=== PATIENT | female | born 2005 | race Caucasian/White ===

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

== ENCOUNTER → 2024-01-09 07:31 | Outpatient (CLI) | payer OTHER, SELFPAY | PROVIDERS: PCP Family Medicine; Referring Provider Family Medicine; Visit Provider Family Medicine | DX: E03.8 Other specified hypothyroidism (principal); E06.3 Autoimmune thyroiditis | CPT/HCPCS: 36415; 84443 ==

== ENCOUNTER → 2024-05-09 08:56 | Outpatient (CLI) | payer BC, SELFPAY ==
--- NOTE | 2024-05-17 12:34 | DIAB.MNT ---
Initial Diabetes Medical Nutrition Therapy Assessment Name: Jessica Terrazas Date: 05/09/24 Time: 9-10a Dx: Type II Diabetes Provider: Andrea Antoni presents for initial DM visit. Reports newly diagnosed with DM with a 10.5% hgA1c. Just one year ago had hgA1c 5.2%. Patient also has PMH of hypothyroidism. After further discussion about rapid onset of symptoms, eye sight changes, frequent urination and thrist over one month, weight loss of 20# over weeks reported in Mar 2024, and presentation of BG in the 400-500mg/dl, this RD has concerns about type of diabetes T2 vs PETE vs T1. Asked provider to place Cpeptide and antibodies and she agreed. Antoni endorses FH of young Dm diagnosis with paternal aunt, who is taking GLP1 to manage. No DM with parents. 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 She attributed the DM to reduced activity post high school. Seems unlikely to cause such a severe change in BG. Taking Metformin with current dose 500mg BID. Rx per provider to titrate u to 1000mg BID. Diet Recall: 12-2: fruit snacks OR granola bar OR oatmeal with brown sugar and 2 toast with butter or PB sn: fruit or cheese 6-7p: chx with 1c potatoes or corn x 0.5-1c OR 1-2c pasta with meat and veg sn: nothing or cookies or ice cream or cake water 2-3 x 32oz+ crystal light milk 24oz+ Anthropometrics: Ht: 63 Wt: 193# 04/10 Weight history: Reports a wt change of 205 to 184# over a few weeks in Feb or Mar 2024 Physical Activity: No program at this time. Self-Monitoring Blood Glucose: None for review. Checking FBG and some after meal 20min to 2 hour pc. FBG often 200s and after meal down from 500, now 200-300mg/dl. Likely benefit from CGM. Diabetes Medications: 1000mg Metformin BID-- taking half Pertinent Labs: HgA1c: 5.2% 05/16/2023 10.5% 03/2024 Past Medical History: (Last Updated 05/30/23 @ 12:28 by Yomaira Walters) Hypothyroidism Oligomenorrhea Nutrition Rx: Carbohydrates: Meal: 30-45g Snack:15-30g Nutrition Diagnosis: - Inconsistent CHO intake r/t nutrition knowledge deficit aeb diet recall and new dx - Physical inactivity r/t stage of change aeb pt report - Self monitoring deficit r/t knowledge deficit aeb checking after meal readings at 20 mins Intervention: This participant was very receptive. Provided appropriate educational handouts. Discussed the following topics: Completed intake assessment. Discussed barriers to care. Pathophysiology and characteristics of Dm: type 1 v PETE v 2 Labs to determine type HgA1c, its correlation to blood glucose numbers, and rationale for goal Importance of self-monitoring, how often, and when to check. Suggested checking at different times to evaluate meals Plate Method, impact of macronutrients on blood sugar, meal timing, carbohydrate counting, pairing macronutrients and spreading out carbohydrates for better blood glucose management Recommended servings for carbohydrates at meals and snacks Brainstormed appropriate meal plan based on food preferences Role of physical activity Medication management: titration of Metformin per rx, SE and how to reduce SE. Potential for insulin pending diabetes type. Created SMART goals for patient self-care and success. Goals: Add breakfast snack or shake Pair CHO and pro Add 10-30 min walk in your day Check FBG and a few 1-2 hours pc Titrate Metformin as rx'd Follow-up: CHRISTIANO ELLSWORTH follow-up in 2-3 weeks. Will consider CGM for her. Pending labs may need change in med regimen, ie orals vs insulin. Meagan Gaming RDN, [facility] Certified Diabetes Care and Geodetic Survey Director P: [phone] Thank you for this referral
== END ==
PROVIDERS: PCP Family Medicine; Referring Provider Family Medicine
DX: E11.9 Type 2 diabetes mellitus without complications (principal); E03.9 Hypothyroidism, unspecified; Z83.3 Family history of diabetes mellitus; Z71.3 Dietary counseling and surveillance; Z79.84 Long term (current) use of oral hypoglycemic drugs
CPT/HCPCS: 97802

== ENCOUNTER → 2024-05-14 09:55 | Outpatient (CLI) | payer BC, SELFPAY ==
[2024-05-15 22:40] LABS: Insulin Level Total 4.3 uIU/mL (2.6-24.9)
== END ==
PROVIDERS: PCP Family Medicine; Referring Provider Family Medicine; Visit Provider Family Medicine
DX: E11.9 Type 2 diabetes mellitus without complications (principal)
CPT/HCPCS: 36415; 83525; 84681

== ENCOUNTER → 2024-05-30 09:49 | Outpatient (CLI) | payer BC, SELFPAY ==
--- NOTE | 2024-06-26 08:22 | DIAB.MNTFU ---
Follow-up Diabetes Medical Nutrition Therapy Assessment Name: Jessica Terrazas Date: 06/26/24 Time: a Dx: Diabetes Provider: Andrea Antoni presents for initial DM visit. Reports newly diagnosed with DM with a 10.5% hgA1c. Just one year ago had hgA1c 5.2%. Patient also has PMH of hypothyroidism. After further discussion about rapid onset of symptoms, eye sight changes, frequent urination and thrist over one month, weight loss of 20# over weeks reported in Feb/Mar 2024, and presentation of BG in the 400-500mg/dl, this RD has concerns about type of diabetes T2 vs PETE vs T1. Asked provider to place Cpeptide and antibodies and she agreed. Reports constipation with BM q 3-4 days. water intake is 32oz x 1-2 per day. Upt to 1000mg BID Metformin. Continues to have elevated BG. Open to CGM sample today. Being conscious of food potions and carbs. Reports an aunt with T1 and insulin pump therapy. She completed C peptide lab and was very low. Will communicate to PCP likely need for insulin therapy. Antoni is open to this. Diet recall: 10a: milk +/- toast with PB 12-2p: granola bar +/- fruit x 1/2c 4/8p: potato soup x 1-1.5c OR beef chino OR chx breaded with handful o fries sn: nothing or cookie water diet soda Anthropometrics: Ht: 63 Wt: 193# 04/10 Weight history: Reports a wt change of 205 to 184# over a few weeks in Feb or Mar 2024 Physical Activity: No program at this time. Walking sometimes. Self-Monitoring Blood Glucose: Reports FBG in the 200s and by mid afternoon 300-500mg/dl. 210mg/dl lowest reading. Seems likely to need MDI. Diabetes Medications: 1000mg Metformin BID Pertinent Labs: HgA1c: 5.2% 05/16/2023 10.5% 03/2024 Cpeptide: 1 L Past Medical History: (Last Updated 05/30/23 @ 12:28 by Yomaira Walters) Hypothyroidism Oligomenorrhea Nutrition Rx: Carbohydrates: Meal: 30-45g Snack:15-30g Nutrition Diagnosis: - Inconsistent CHO intake r/t nutrition knowledge deficit aeb diet recall and new dx- improved - Physical inactivity r/t stage of change aeb pt report - in progress - Self monitoring deficit r/t knowledge deficit aeb checking after meal readings at 20 mins- improved - Nutrition and food related knowledge deficit r/t limited MNT education aeb needing more info on constipation and hydration- new Intervention: This participant was very receptive. Provided appropriate educational handouts. Discussed the following topics: Fiber and hydration MNT CGM self placement, education, action and precaution physical activiyt Created SMART goals for patient self-care and success. Goals: Add breakfast snack or shake- met Pair CHO and pro- in progress Add 10-30 min walk in your day- in progress Check FBG and a few 1-2 hours pc- met Titrate Metformin as rx'd- met Wear CGM sample- new Add fiber slowly- new Walk 10-20 mins- new Follow-up: CHRISTIANO ELLSWORTH follow-up in 2-3 weeks Meagan Gaming RDN, SENG Certified Diabetes Care and Cigarette Making Machine Operator P: [phone] Thank you for this referral
--- NOTE | 2024-06-26 17:15 | DIAB.MNTFU ---
Follow-up Diabetes Medical Nutrition Therapy Assessment Name: Jessica Terrazas Date: 05/30/24 Time: 10a Dx: Diabetes Provider: Andrea Antoni presents for DM visit. Reports newly diagnosed with DM with a 10.5% hgA1c. Just one year ago had hgA1c 5.2%. Patient also has PMH of hypothyroidism. After further discussion about rapid onset of symptoms, eye sight changes, frequent urination and thrist over one month, weight loss of 20# over weeks reported in Feb/Mar 2024, and presentation of BG in the 400-500mg/dl, this RD has concerns about type of diabetes T2 vs PETE vs T1. Asked provider to place Cpeptide and antibodies and she agreed. Reports constipation with BM q 3-4 days. water intake is 32oz x 1-2 per day. Upt to 1000mg BID Metformin. Continues to have elevated BG. Open to CGM sample today. Being conscious of food potions and carbs. Reports an aunt with T1 and insulin pump therapy. She completed C peptide lab and was very low. Will communicate to PCP likely need for insulin therapy. Antoni is open to this. Diet recall: 10a: milk +/- toast with PB 12-2p: granola bar +/- fruit x 1/2c 4/8p: potato soup x 1-1.5c OR beef chino OR chx breaded with handful o fries sn: nothing or cookie water diet soda Anthropometrics: Ht: 63 Wt: 193# 04/10 Weight history: Reports a wt change of 205 to 184# over a few weeks in Feb or Mar 2024 Physical Activity: No program at this time. Walking sometimes. Self-Monitoring Blood Glucose: Reports FBG in the 200s and by mid afternoon 300-500mg/dl. 210mg/dl lowest reading. Seems likely to need MDI. Diabetes Medications: 1000mg Metformin BID Pertinent Labs: HgA1c: 5.2% 05/16/2023 10.5% 03/2024 Cpeptide: 1 L Past Medical History: (Last Updated 05/30/23 @ 12:28 by Yomaira Walters) Hypothyroidism Oligomenorrhea Nutrition Rx: Carbohydrates: Meal: 30-45g Snack:15-30g Nutrition Diagnosis: - Inconsistent CHO intake r/t nutrition knowledge deficit aeb diet recall and new dx- improved - Physical inactivity r/t stage of change aeb pt report - in progress - Self monitoring deficit r/t knowledge deficit aeb checking after meal readings at 20 mins- improved - Nutrition and food related knowledge deficit r/t limited MNT education aeb needing more info on constipation and hydration- new Intervention: This participant was very receptive. Provided appropriate educational handouts. Discussed the following topics: Fiber and hydration MNT CGM self placement, education, action and precaution physical activiyt Created SMART goals for patient self-care and success. Goals: Add breakfast snack or shake- met Pair CHO and pro- in progress Add 10-30 min walk in your day- in progress Check FBG and a few 1-2 hours pc- met Titrate Metformin as rx'd- met Wear CGM sample- new Add fiber slowly- new Walk 10-20 mins- new Follow-up: CHRISTIANO ELLSWORTH follow-up in 2-3 weeks Meagan Gaming RDN, SENG Certified Diabetes Care and Oxyacetylene Welder P: [phone] Thank you for this referral
== END ==
PROVIDERS: PCP Family Medicine; Referring Provider Family Medicine
DX: E11.9 Type 2 diabetes mellitus without complications (principal); Z71.3 Dietary counseling and surveillance; E03.9 Hypothyroidism, unspecified; Z79.84 Long term (current) use of oral hypoglycemic drugs; Z83.3 Family history of diabetes mellitus
CPT/HCPCS: 97803

== ENCOUNTER → 2024-06-14 14:29 | Outpatient (CLI) | payer BC, SELFPAY ==
--- NOTE | 2024-06-26 17:16 | DIAB.FU ---
Follow-up Diabetes Education Assessment Name: Jessica Terrazas Date: 06/14/24 Time: 230-917p Dx: Diabetes Provider: Mendez Antoni presents for follow-up DM visit. Newly diagnosed with DM with a 10.5% hgA1c. Just one year ago had hgA1c 5.2%. Patient also has PMH of hypothyroidism. Reported rapid onset of symptoms, eye sight changes, frequent urination and thrist over one month, weight loss of 20# over weeks reported in Mar 2024, and presentation of BG in the 400-500mg/dl, this RD has concerns about type of diabetes T2 vs PETE vs T1. Cpeptide low, indicating liklihood of T1 or PETE diagnosis. Reports 30# loss wt over the last 2-3 month. Wore CGM, indicating consistent elevations. RD messaged PCP regarding glucose report findings. Would rec insulin therapy. Endorses lower BG lately of 170s pre meal. Anthropometrics: Ht: 63 Wt: 163# reported 193# 04/10 Weight history: Reports a wt change of 205 to 184# over a few weeks in Feb or Mar 2024 Physical Activity: No program at this time. Walking sometimes. Self-Monitoring Blood Glucose: Wore CGM since last visit indicating consistently elevated BG >250mg/dl. She reports some recent FBG of 170s, though not checking consistently. TIR: 100% very high 0% high 0% in range 0% low avmg/dl GMI: 12.4% std dev: 34 mg/dl variance: 8.8% Diabetes Medications: 1000mg Metformin BID Pertinent Labs: HgA1c: 5.2% 05/16/2023 10.5% 03/2024 Cpeptide: 1 L Past Medical History: (Last Updated 05/30/23 @ 12:28 by Yomaira Walters) Hypothyroidism Oligomenorrhea Intervention: This participant was very receptive. Provided appropriate educational handouts. Discussed the following topics: DKA s/s and when to report to hospital Checking for ketones SMBG Hydration Watching carbs until we can get insulin rx Created SMART goals for patient self-care and success. Goals: Wear CGM sample- met Add fiber slowly- in progress Walk 10-20 mins- in progress Check FBG- new Stay hydrated- new Keep CHO low, especially simple CHO- new Follow-up: RDN [facility] follow-up in 2-3 weeks. At the time of this visit, this RD did determine she was at risk for DKA. We reviewed s/s of DKA and the likely need for insulin and her provider was contacted regarding >250mg/dl TIR via EMR messaging. Meagan Gaming RDN, [facility] Certified Diabetes Care and Deep Sea Diver P: [phone] Thank you for this referral
== END ==
PROVIDERS: PCP Family Medicine; Referring Provider Family Medicine
DX: E11.9 Type 2 diabetes mellitus without complications (principal); E03.9 Hypothyroidism, unspecified; Z79.84 Long term (current) use of oral hypoglycemic drugs; Z71.3 Dietary counseling and surveillance
CPT/HCPCS: G0108

== ENCOUNTER 2024-06-22 22:48 | Inpatient (IN) | payer OTHER, SELFPAY ==
[2024-06-22 23:04] VITALS: BP 140/82
[2024-06-22 23:05] VITALS: BP 155/86; PULSE 83; PULSE 95; RESP 27; TEMP 36.6; O2SAT 100; BMI 30.2
[2024-06-22 23:11] LABS: Base Excess VBG -23.2 mmol/L (0-4); HCO3 VBG 6 mmol/L (24-28); Oxygen Saturation VBG 52 % (70-75); PCO2 VBG 19.8 mmHg (45-50); PO2 VBG 38 mmHg (35-45); Total CO2 VBG 5 mmol/L (24-29); pH VBG 7.05 (7.33-7.43)
--- NOTE | 2024-06-22 23:14 | ED_ITS ---
HPI - General Adult General Chief complaint: Diabetic Problem Stated complaint: really high blood sugars Time Seen by Provider: 06/22/24 23:09 History of Present Illness HPI narrative: 18-year-old female with recent diagnosis of diabetes mellitus March 2025, has been taking metformin 1000 mg twice daily, recently prescribed insulin that she has not yet started but has filled the prescription, tonight at dinner seemed confused to her friends, sugars not checked, here for evaluation, found not to have any low blood sugar but has very high blood sugar level. Denies recent cough, sore throat, chest pain, abdominal pain, has had some nausea but no emesis, no loose stools, no black or red stools. She is not on her period, does not believe herself to be . She denies sensation of shortness of breath. Related Data Previous Rx's Medication Instructions Recorded levothyroxine 150 mcg tablet 150 mcg PO DAILY #90 tabs 10/21/23 escitalopram oxalate 10 mg tablet 10 mg PO DAILY #30 tabs 11/21/23 (Lexapro) metformin 500 mg tablet 500 mg PO BID #60 tabs 03/29/24 insulin glargine 100 unit/mL (3 10 unit (0.1 mL) SUBCUT QPM #3 mL 06/21/24 mL) subcutaneous pen pen needle, diabetic 30 gauge x #100 ea 06/22/2408/31 Allergies Allergy/AdvReac Type Severity Reaction Status Date / Time No Known Drug Allergies Allergy Unverified 03/29/24 09:57 Patient History Medical History Hypothyroidism Oligomenorrhea Family History Father Hypothyroidism Social History household members: family Smoking Status: Never smoker Smoking Status: Never smoker Exam Narrative Exam Narrative: GENERAL: Well-developed patient, in mild distress. HEAD: Atraumatic. Normocephalic. EYES: Pupils equal round and reactive. Extraocular motions intact. No scleral icterus. No injection or drainage. ENT: Nose without bleeding, purulent drainage. Throat without erythema, tonsillar hypertrophy or exudate. Airway patent. NECK: Trachea midline. Non tender CARDIOVASCULAR: Regular rate and rhythm without murmurs, gallops, or rubs. RESPIRATORY: Clear to auscultation. Breath sounds equal bilaterally. No wheezes, rales, or rhonchi. GASTROINTESTINAL: Abdomen soft, non-tender, nondistended. EXTREMITIES: No edema or joint tenderness. BACK: Nontender without deformity or crepitance. No flank tenderness. NEURO: AOx3. Motor functions grossly nonfocal SKIN: No rash or erythema of visible areas Initial Vital Signs Initial Vital Signs: Vital Signs Blood Pressure 140/82 06/22/24 23:04 Course Orders Ordered: ED Orders 06/22/24 23:05 Complete Blood Count AUTO DIFF Stat Comprehensive Metabolic Panel Stat HCG Quantitative /Beta subunit Stat Ketones (Beta-Hydroxybutyrate) Stat 06/22/24 23:08 Venous Blood Gas Routine 06/22/24 23:11 VBG [Venous Blood Gas] STAT 06/23/24 00:16 Consult to Dietitian, Adult Routine Arterial Blood Gas STAT 06/23/24 00:40 CXR [XR chest 1V] Stat 06/23/24 01:50 Basic Metabolic Panel Q4H 06/23/24 08:30 Basic Metabolic Panel Q4H Acetaminophen (Acetaminophen 325 Mg Tablet) 650 mg PO Q6H PRN PRN Reason: Fever/Mild Pain (1-3) Dextrose (D10w) 100 mls @ 999 mls/hr IV PRN PRN PRN Reason: Hypoglycemia INSULIN DRIP PREMIX (Myxredlin Drip Premix) 100 unit in 100 mls @ 7.484 mls/hr IV TITRATE RONY; Protocol Last Titration: 06/23/24 04:48 Dose: 0.05 unit/kg/hr, 3.742 mls/hr Documented By: WB Co-signed By: MOY Admin: 06/23/24 01:59 Dose: 0.1 unit/kg/hr, 7.484 mls/hr Documented By: WB Co-signed By: AMY Sodium Chloride (Normal Saline 0.9%) 1,000 mls @ 150 mls/hr IV CONT RONY Last Infusion: 06/23/24 04:07 Dose: 0 mls/hr Documented By: Admin: 06/23/24 03:00 Dose: 150 mls/hr Documented By: MIKKI Potassium Chloride/Sodium Chloride (Ns With Kcl 20 Meq) 1,000 mls @ 250 mls/hr IV CONT RONY Last Admin: 06/23/24 04:07 Dose: 250 mls/hr Documented By: WB Potassium Chloride/Dextrose/Sod Cl (Dextrose 5%-0.45%Ns W/Kcl 20meq) 1,000 mls @ 150 mls/hr IV CONT RONY Last Infusion: 06/23/24 05:56 Dose: 250 mls/hr Documented By: Admin: 06/23/24 04:49 Dose: 150 mls/hr Documented By: WB Naloxone HCl (Naloxone 0.4 Mg/Ml Vial) 0.2 mg IV Q2MIN PRN PRN Reason: Opiate Reversal Discontinued Medications Sodium Chloride (Normal Saline 0.9%) 1,000 mls @ 1,000 mls/hr IV BOLUS ONE Stop: 06/23/24 00:08 Last Infusion: 06/23/24 00:53 Dose: Infused Documented By: Admin: 06/22/24 23:28 Dose: 1,000 mls/hr Documented By: ROSENDO Sodium Chloride (Normal Saline 0.9%) 1,000 mls @ 1,000 mls/hr IV BOLUS ONE Stop: 06/23/24 00:09 Sodium Chloride (Normal Saline 0.9%) 1,000 mls @ 1,000 mls/hr IV BOLUS ONE Stop: 06/23/24 01:13 Last Infusion: 06/23/24 02:00 Dose: Infused Documented By: Admin: 06/23/24 00:56 Dose: 1,000 mls/hr Documented By: AB Dextrose/Sodium Chloride (Dextrose 5%-0.45% Ns) 1,000 mls @ 150 mls/hr IV CONT RONY Last Admin: 06/23/24 06:38 Dose: Not Given Documented By: WB Insulin Human Regular (Insulin Regular 100 Unit/Ml 3 Ml Vial) 5 unit IV NOW ONE Stop: 06/23/24 00:20 Last Admin: 06/23/24 00:56 Dose: 5 unit Documented By: Co-signed By: ROSENDO Potassium Chloride (Potassium Chloride 20 Meq Tab) 40 meq PO NOW ONE Stop: 06/23/24 05:50 Vital Signs Vital signs: Vital Signs - 8 hr 06/22/24 23:04 06/22/24 23:05 06/22/24 23:05 Temperature 97.9 F Pulse Rate 95 H 83 Respiratory Rate 27 H Blood Pressure 140/82 155/86 H Pulse Oximetry 100 100 Oxygen Delivery Method Room Air 06/22/24 23:30 06/22/24 23:30 06/23/24 00:00 Temperature Pulse Rate 82 Respiratory Rate Blood Pressure 114/64 111/67 Pulse Oximetry 100 Oxygen Delivery Method 06/23/24 00:00 06/23/24 00:36 06/23/24 00:37 Temperature Pulse Rate 73 105 H 104 H Respiratory Rate Blood Pressure Pulse Oximetry 100 93 100 Oxygen Delivery Method 06/23/24 00:37 Temperature Pulse Rate Respiratory Rate Blood Pressure 137/89 Pulse Oximetry Oxygen Delivery Method Medical Decision Making Lab Data Lab results reviewed: Yes I reviewed the patient's lab results. Lab results narrative: White blood cell count 44711, hemoglobin 14, platelets adequate. Glucose 630. BUN 10 with creatinine 0.85. Serum CO2 less than 5 noted, potassium 4.0 normal, sodium 133, chloride 105. HCG negative. Serum ketones 9 elevated. VBG pH 7.05 noted. 06/23/24 04:08 06/23/24 04:08 Labs: Lab Results 06/22/24 06/22/24 06/23/24 Range/Units 23:05 23:08 00:50 WBC 11.9 H (4.5-11.0) X10^3/uL RBC 5.44 H (4.0-5.2) X10^6/uL Hgb 14.0 (12.0-16.0) g/dL Hct 43.5 (36-46) % MCV 79.9 L (80-100) fL MCH 25.8 L (26-34) PG MCHC 32.2 (30-36) % RDW 17.5 H (11.6-14.8) % Plt Count 346 (150-400) X10^3/uL Neut % (Auto) 75.2 H (50-75) % Lymph % (Auto) 15.6 L (25-40) % Clare % (Auto) 8.4 (3-14) % Eos % (Auto) 0.1 L (2-4) % Baso % (Auto) 0.7 (0-2) % Neut # (Auto) 9000 H (6452-9723) /uL Lymph # (Auto) 1900 (7956-7666) /uL Clare # (Auto) 1000 H (0-900) /uL Eos # (Auto) 0 (0-450) /uL Baso # (Auto) 100 (0-100) /uL ABG Sample Site Right radial ABG pH 7.10 L* (7.35-7.45) ABG pCO2 13.0 L* (35-45) mmHg ABG pO2 133 H (80-100) mmHg ABG HCO3 4 L (23-27) mmol/L ABG Total CO2 < 5 L (23-27) mmol/L ABG O2 Saturation 98 (95-100) % ABG Base Excess -23.4 L (-2-3) mmol/L Lalo Test Positive VBG pH 7.05 L* (7.33-7.43) VBG pCO2 19.8 L (45-50) mmHg VBG pO2 38 (35-45) mmHg VBG HCO3 6 L (24-28) mmol/L VBG Total CO2 5 L (24-29) mmol/L VBG O2 Saturation 52 L (70-75) % VBG Base Excess -23.2 L (0-4) mmol/L FiO2 % 21 % 21 % % Sodium 133 L (137-145) mmol/L Potassium 4.0 (3.4-5.1) mmol/L Chloride 105 (98-107) mmol/L Carbon Dioxide < 5 L* (22-32) mmol/L BUN 10 (7-17) mg/dL Creatinine 0.85 (0.52-1.04) mg/dL Estimated GFR > 60 (>60) mL/min BUN/Creatinine Ratio 11.8 (6-22) Glucose 630 H* (70-100) mg/dL Calcium 9.3 (8.4-10.2) mg/dL Total Bilirubin 0.7 (0.2-1.3) mg/dL AST 32 (14-36) IU/L ALT 20 (<35) IU/L Alkaline Phosphatase 188 H (38-126) U/L Total Protein 8.4 H (6.3-8.2) g/dL Albumin 4.9 (3.5-5.0) g/dL Globulin 3.5 (1.7-4.1) g/dL Albumin/Globulin Ratio 1.4 (1.0-2.8) HCG, Quant < 2.39 mIU/mL Ketones 9.05 H (<0.27) mmol/L Point of Care Testing Glucose POC 514 Point of care testing: Point of Care Testing Glucose POC 514 Imaging Data Chest x-ray: Radiologist's Impression: [address] [address] XRay Report Signed Patient: Jessica Terrazas MR#: [id number] : 2005 Acct:[id number] Age/Sex: 18 / F Date of Service: 06/23/24 Loc: AC 90A-1 Accession Number: [id number] Procedure: XR chest 1V Ordering Provider: Orlando Vega MD PROCEDURE: XR CHEST 1V INDICATIONS: DKA TECHNIQUE: One view of the chest was acquired. COMPARISON: None. FINDINGS: Surgical changes and devices: None. Lungs and pleura: Lungs are clear. No pleural effusions or pneumothorax. Mediastinum: Mediastinal contours appear normal. Heart size is normal. Bones and chest wall: No suspicious bony lesions. Overlying soft tissues appear unremarkable. IMPRESSION: No acute cardiopulmonary pathology. Dictated by: Jose Dominguez M.D. on 06/23/2024 at 0:50 Approved by: Jose oDminguez M.D. on 06/23/2024 at 0:50 [facility] Narrative Medical decision making narrative: 18-year-old female with history of recent diagnosis diabetes mellitus, has been taking metformin 1000 mg twice daily, recently prescribed insulin that she has not started, had some confusion at dinner noted by family, here for evaluation, no low sugar confirmed, in fact she had high sugar, respiratory rate 25-30, increased respiratory rate, suspected DKA. Serum glucose greater than 500. IV fluid bolus ordered. Labs sent to check potassium. VBG ordered. VBG shows pH 7.0, suspected DKA. Ketones pending. HCG negative. Chem panel pending. Phone call from lab, glucose 630 noted, serum CO2 less than 5, BUN 10 with creatinine 0.5 normal, potassium 4.0 normal noted. We will start insulin per DKA protocol. Regular IV insulin 5 unit bolus, then insulin infusion per DKA protocol. Advised admission to ICU, patient is agreeable. Patient also informed that since she seems to have DKA that she should probably not be taking metformin in the future. Patient agreeable to admission. We will contact hospitalist. Initial labs: White blood cell count 56641, hemoglobin 14, platelets adequate. Glucose 630. BUN 10 with creatinine 0.85. Serum CO2 less than 5 noted, potassium 4.0 normal, sodium 133, chloride 105. HCG negative. Serum ketones 9 elevated. VBG pH 7.05 noted. Chest x-ray shows no acute infiltrates. See radiology report. Urinalysis negative 29, case discussed with hospitalist Dr. Bloom who accepts patient for admission to ICU Critical Care Time Critical Care Time Critical Care Time: Yes Total Critical Care Time: 35 Attestation: The high probability of a clinically significant, sudden or life threatening deterioration of the [metabolic, cardiopulmonary] system(s) required my full and direct attention, intervention and personal management. The aggregate critical care time was [35] minutes. This time is in addition to time spent performing reported procedures but includes the following: [x] Data Review and interpretation [x] Patient assessment and monitoring of vital signs [x] Documentation [x] Medication orders and management Discharge Plan Departure Patient Disposition: Admitted As Inpatient Clinical Impression: Diabetic ketoacidosis Admit Date/Time: 06/23/24 00:51 Admit Provider: Delfin Olsen
[2024-06-22 23:21] LABS: Add Manual Diff / Slide Review NO; Basophils Absolute Auto 100 /uL (0-100); Basophils Percent Auto 0.7 % (0-2); Eosinophils Absolute Auto 0 /uL (0-450); Eosinophils Percent Auto 0.1 % (2-4); Hematocrit 43.5 % (36-46); Lymphocytes Absolute Auto 1900 /uL (1100-4500); Lymphocytes Percent Auto 15.6 % (25-40); Mean Corpuscular HGB Conc 32.2 % (30-36); Mean Corpuscular Hemoglobin 25.8 PG (26-34); Mean Corpuscular Volume 79.9 fL (80-100); Monocytes Absolute Auto 1000 /uL (0-900); Monocytes Percent Auto 8.4 % (3-14); Neutrophils Absolute Auto 9000 /uL (1500-7000); Neutrophils Percent Auto 75.2 % (50-75); Platelet Count 346 X10^3/uL (150-400); Red Blood Cell Count 5.44 X10^6/uL (4.0-5.2); Red Cell Distribution Width 17.5 % (11.6-14.8); White Blood Cell Count 11.9 X10^3/uL (4.5-11.0)
[2024-06-22] MEDS: SODIUM CHLORIDE 0.9% 1,000 ML 1000 ML IV (23:28)
[2024-06-22 23:30] VITALS: BP 114/64; PULSE 82; O2SAT 100
[2024-06-22 23:42] LABS: HCG Quantitative /Beta subunit < 2.39 mIU/mL
[2024-06-22 23:53] LABS: Alanine Aminotransferase 20 IU/L (<35); Albumin 4.9 g/dL (3.5-5.0); Albumin Globulin Ratio 1.4 (1.0-2.8); Alkaline Phosphatase 188 U/L (38-126); Aspartate Aminotransferase 32 IU/L (14-36); BUN Creatinine Ratio 11.8 (6-22); Bilirubin Total 0.7 mg/dL (0.2-1.3); Blood Urea Nitrogen 10 mg/dL (7-17); Calcium 9.3 mg/dL (8.4-10.2); Chloride 105 mmol/L (98-107); Estimated Glomerular Filt Rate > 60 mL/min (>60); Globulin 3.5 g/dL (1.7-4.1); HEMOLYSIS < 15 (0-50); Sodium 133 mmol/L (137-145); Total Protein 8.4 g/dL (6.3-8.2)
[2024-06-23] VITALS (35 sets, daily range): BP systolic 97–137; BP diastolic 53–89; PULSE 63–105; RESP 16–20; TEMP 36.2–36.7; O2SAT 93–100; BMI 30.2
[2024-06-23 00:18] LABS: Carbon Dioxide < 5 mmol/L (22-32)
[2024-06-23 00:19] LABS: Glucose 630 mg/dL (70-100)
[2024-06-23 00:30] LABS: Ketones (Beta-Hydroxybutyrate) 9.05 mmol/L (<0.27)
--- NOTE | 2024-06-23 00:40 | DI.RAD.S_ITS ---
PROCEDURE: XR CHEST 1V INDICATIONS: DKA TECHNIQUE: One view of the chest was acquired. COMPARISON: None. FINDINGS: Surgical changes and devices: None. Lungs and pleura: Lungs are clear. No pleural effusions or pneumothorax. Mediastinum: Mediastinal contours appear normal. Heart size is normal. Bones and chest wall: No suspicious bony lesions. Overlying soft tissues appear unremarkable. IMPRESSION: No acute cardiopulmonary pathology. Dictated by: Jose Dominguez M.D. on 06/23/2024 at 0:50 Approved by: Jose Dominguez M.D. on 06/23/2024 at 0:50
[2024-06-23 00:54] LABS: Allen Test for ABG Passed? Positive; Base Excess ABG -23.4 mmol/L (-2-3); Blood Gas Collection Site Right Radial; HCO3 ABG 4 mmol/L (23-27); Oxygen Saturation ABG 98 % (95-100); PO2 ABG 133 mmHg (80-100); TCO2 ABG < 5 mmol/L (23-27)
[2024-06-23] MEDS: SODIUM CHLORIDE 0.9% 1,000 ML 1000 ML IV (00:56)
[2024-06-23] MEDS: INSULIN REGULAR 100 UNIT/ML 3 ML VIAL IV (00:56)
--- NOTE | 2024-06-23 01:11 | P.HP_ITS ---
History of Present Illness History of Present Illness Chief complaint: really high blood sugars Narrative: 18 y/o with PMH of DM diagnosed 3 months ago, hypothyroidism, anxiety and depression, presented to ED confused and found to be in DKA, She was on metformin that was recently increased to 1 g bid and she was just prescribed long acting insulin 10 units daily but still did not not fill it. Started on insulin drip, IVFs and admitted for further treatment. [facility] Medical History Hypothyroidism Oligomenorrhea Family History Father Hypothyroidism Social History household members: family Smoking Status: Never smoker Meds Home Medications and Allergies Home Medications Medication Instructions Recorded Confirmed Type levothyroxine 150 mcg tablet 150 mcg PO DAILY #90 tabs 10/21/23 06/23/24 Rx escitalopram oxalate 10 mg tablet 10 mg PO DAILY #30 tabs 11/21/23 06/23/24 Rx (Lexapro) metformin 500 mg tablet 500 mg PO BID #60 tabs 03/29/24 06/23/24 Rx insulin glargine 100 unit/mL (3 10 unit (0.1 mL) SUBCUT QPM #3 mL 06/21/24 06/23/24 Rx mL) subcutaneous pen pen needle, diabetic 30 gauge x #100 ea 06/22/24 06/23/24 Rx 5/16 Allergies Allergy/AdvReac Type Severity Reaction Status Date / Time No Known Drug Allergies Allergy Unverified 03/29/24 09:57 Review of Systems Constitutional Comments: Generalized weakness, weight loss No fever, chills, sweats Eyes Comments: blurred vision Cardiovascular Comments: w/o palpitations or chest pain Respiratory Comments: w/o cough Gastrointestinal Comments: nauseated Endocrine Comments: polyuria, polydipsia Exam Vital Signs (past 8 hours): - 06/22/24 23:04 06/22/24 23:05 06/22/24 23:05 Temperature 97.9 F Pulse Rate 95 H 83 Respiratory Rate 27 H Blood Pressure 140/82 155/86 H Pulse Oximetry 100 100 Oxygen Delivery Method Room Air 06/22/24 23:30 06/22/24 23:30 06/23/24 00:00 Temperature Pulse Rate 82 Respiratory Rate Blood Pressure 114/64 111/67 Pulse Oximetry 100 Oxygen Delivery Method 06/23/24 00:00 06/23/24 00:36 06/23/24 00:37 Temperature Pulse Rate 73 105 H 104 H Respiratory Rate Blood Pressure Pulse Oximetry 100 93 100 Oxygen Delivery Method 06/23/24 00:37 Temperature Pulse Rate Respiratory Rate Blood Pressure 137/89 Pulse Oximetry Oxygen Delivery Method Oxygen Delivery Method Room Air Const Other: in no distress, mother present HENMT Other: normocepahlaic Resp Other: tachypneic, not wheezy Cardio Other: RRR GI Other: w/o distension Skin Other: w/o rashes Neuro Other: w/o deficits Psych Other: lucid, normal mood and affect Objective Labs 06/23/24 04:08 06/23/24 04:08 Labs: Laboratory Results - last 24 hr 06/22/24 06/22/24 06/23/24 23:05 23:08 00:50 WBC 11.9 H RBC 5.44 H Hgb 14.0 Hct 43.5 MCV 79.9 L MCH 25.8 L MCHC 32.2 RDW 17.5 H Plt Count 346 Neut % (Auto) 75.2 H Lymph % (Auto) 15.6 L Lewis % (Auto) 8.4 Eos % (Auto) 0.1 L Baso % (Auto) 0.7 Neut # (Auto) 9000 H Lymph # (Auto) 1900 Lewis # (Auto) 1000 H Eos # (Auto) 0 Baso # (Auto) 100 ABG Sample Site Right radial ABG pH 7.10 L* ABG pCO2 13.0 L* ABG pO2 133 H ABG HCO3 4 L ABG Total CO2 < 5 L ABG O2 Saturation 98 ABG Base Excess -23.4 L Lalo Test Positive VBG pH 7.05 L* VBG pCO2 19.8 L VBG pO2 38 VBG HCO3 6 L VBG Total CO2 5 L VBG O2 Saturation 52 L VBG Base Excess -23.2 L FiO2 % 21 % 21 % Sodium 133 L Potassium 4.0 Chloride 105 Carbon Dioxide < 5 L* BUN 10 Creatinine 0.85 Estimated GFR > 60 BUN/Creatinine Ratio 11.8 Glucose 630 H* Calcium 9.3 Total Bilirubin 0.7 AST 32 ALT 20 Alkaline Phosphatase 188 H Total Protein 8.4 H Albumin 4.9 Globulin 3.5 Albumin/Globulin Ratio 1.4 HCG, Quant < 2.39 Ketones 9.05 H Assessment & Plan Assessment and plan (1) Diabetic ketoacidosis: Status: Acute (2) Anxiety and depression: Status: Acute (3) Hypothyroidism: Qualifiers: 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 Qualified Code(s): E03.8 - Other specified hypothyroidism; E06.3 - Autoimmune thyroiditis Status: Acute Assessment & Plan narrative: DKA - DM diagnosed in 04/10 with A1C >12 - failed increased outptient metformin and was just about to start Lantus 10 units - insulin drip, IVFs, ICU monitoring Anxiety / Depression - Lexapro Hypothyroidism - levothyroxine - tsh pending DVT prophylaxis - SCDs Time-Based Coding :: [TOTAL MINUTES] spent with patient and on the chart (including review of chart, obtaining history, exam, reviewing outside data, placing orders, documenting exam and treatment plan, and counseling patient) on [DATE].
[2024-06-23 01:46] LABS: Bacteria Urine None Seen; Culture Indicated Urine Cult Not Indicated; RBC Urine 0-1/HPF (0-5/HPF); Squamous Epithelial Cell Urine 0-1 /HPF (0-5/HPF); Urine Volume 10mL (spun); WBC Urine None Seen (0-5/HPF)
[2024-06-23] MEDS: INSULIN DRIP PREMIX 100 UNIT/100 ML PLAST..BAG 7.484 UNIT IV ×2 (01:59→13:08)
[2024-06-23 02:08] LABS: BUN Creatinine Ratio 10.5 (6-22); Blood Urea Nitrogen 8 mg/dL (7-17); Calcium 7.9 mg/dL (8.4-10.2); Chloride 113 mmol/L (98-107); Estimated Glomerular Filt Rate > 60 mL/min (>60); Potassium 4.5 mmol/L (3.4-5.1); Sodium 138 mmol/L (137-145)
[2024-06-23 02:15] LABS: HEMOLYSIS 61 (0-50)
[2024-06-23 02:20] LABS: Carbon Dioxide < 5 mmol/L (22-32); Glucose 514 mg/dL (70-100)
[2024-06-23] MEDS: SODIUM CHLORIDE 0.9% 1,000 ML 150 ML IV (03:00)
[2024-06-23] MEDS: KCL 20 MEQ IN NS 1,000 ML 250 MEQ IV ×2 (04:07→15:30)
[2024-06-23 04:09] LABS: MRSA (Nasal) PCR NOT DETECTED (Not Detect)
[2024-06-23 04:35] LABS: Base Excess VBG -20.4 mmol/L (0-4); HCO3 VBG 7 mmol/L (24-28); Oxygen Saturation VBG 92 % (70-75); PCO2 VBG 18.8 mmHg (45-50); PO2 VBG 78 mmHg (35-45); Total CO2 VBG 6 mmol/L (24-29); pH VBG 7.15 (7.33-7.43)
[2024-06-23] MEDS: DEXTROSE 5%-0.45NS W/KCL 20MEQ 1,000 ML 150 MEQ IV (04:49)
[2024-06-23 05:06] LABS: Add Manual Diff / Slide Review NO; Basophils Absolute Auto 100 /uL (0-100); Basophils Percent Auto 0.6 % (0-2); Eosinophils Absolute Auto 0 /uL (0-450); Eosinophils Percent Auto 0.3 % (2-4); Hematocrit 39.6 % (36-46); Hemoglobin 13.3 g/dL (12.0-16.0); Lymphocytes Absolute Auto 2500 /uL (1100-4500); Mean Corpuscular HGB Conc 33.7 % (30-36); Mean Corpuscular Volume 77.1 fL (80-100); Monocytes Absolute Auto 1000 /uL (0-900); Monocytes Percent Auto 8.8 % (3-14); Neutrophils Absolute Auto 7700 /uL (1500-7000); Neutrophils Percent Auto 68.3 % (50-75); Platelet Count 297 X10^3/uL (150-400); Red Blood Cell Count 5.13 X10^6/uL (4.0-5.2); Red Cell Distribution Width 17.5 % (11.6-14.8); White Blood Cell Count 11.2 X10^3/uL (4.5-11.0)
[2024-06-23 05:19] LABS: BUN Creatinine Ratio 11.3 (6-22); Blood Urea Nitrogen 8 mg/dL (7-17); Calcium 8.8 mg/dL (8.4-10.2); Chloride 118 mmol/L (98-107); Estimated Glomerular Filt Rate > 60 mL/min (>60); Glucose 215 mg/dL (70-100); HEMOLYSIS < 15 (0-50); Hemoglobin A1C% w Est Avg Glu 13.5 % (4.0-6.0); Sodium 141 mmol/L (137-145)
[2024-06-23 05:42] LABS: Carbon Dioxide < 5 mmol/L (22-32)
[2024-06-23 06:52] LABS: HEMOLYSIS 17 (0-50); Potassium 3.2 mmol/L (3.4-5.1)
[2024-06-23 07:00] LABS: Free T4, Direct Thyroxine 0.35 ng/dL (0.78-2.19)
--- NOTE | 2024-06-23 08:04 | PM.HP.IH.1 ---
History of Present Illness History of Present Illness Date Patient Seen: 06/23/24 Time Patient Seen: 07:45 Chief complaint: really high blood sugars Narrative: From night hospitalist: 18 y/o with PMH of DM diagnosed 3 months ago, hypothyroidism, anxiety and depression, presented to ED confused and found to be in DKA, She was on metformin that was recently increased to 1 g bid and she was just prescribed long acting insulin 10 units daily but still did not not fill it. Started on insulin drip, IVFs and admitted for further treatment. Interim history: Patient reports feeling better this morning. She has been using a Dexcom blood sugar monitor at home on a 2 week trial through diabetes education. Blood sugars were in the 200-300s range she states. She has been on Synthroid but reports she has only been intermittently compliant. Her TSH returned at 61.5. She is seen with her mother and father at bedside. She admits to history of depression but states this is controlled on escitalopram. She denies recent is, infectious, chest pain, shortness for breath, vomiting, abdominal pain, diarrhea, constipation, urinary or genitourinary complaints. [facility], [facility] Medical History Hypothyroidism Oligomenorrhea Family History Father Hypothyroidism Social History household members: family Smoking Status: Never smoker Meds Home Medications and Allergies Home Medications Medication Instructions Recorded Confirmed Type levothyroxine 150 mcg tablet 150 mcg PO DAILY #90 tabs 10/21/23 06/23/24 Rx escitalopram oxalate 10 mg tablet 10 mg PO DAILY #30 tabs 11/21/23 06/23/24 Rx (Lexapro) metformin 500 mg tablet 500 mg PO BID #60 tabs 03/29/24 06/23/24 Rx insulin glargine 100 unit/mL (3 10 unit (0.1 mL) SUBCUT QPM #3 mL 06/21/24 06/23/24 Rx mL) subcutaneous pen pen needle, diabetic 30 gauge x #100 ea 06/22/24 06/23/24 Rx 5/16 Allergies Allergy/AdvReac Type Severity Reaction Status Date / Time No Known Drug Allergies Allergy Unverified 03/29/24 09:57 Review of Systems Review of Systems ROS: Yes All systems reviewed with the patient and are negative except as otherwise documented Exam Vital Signs (past 8 hours): - 06/23/24 00:36 06/23/24 00:37 06/23/24 00:37 Temperature Pulse Rate 105 H 104 H Respiratory Rate Blood Pressure 137/89 Pulse Oximetry 93 100 Oxygen Flow Rate 06/23/24 01:00 06/23/24 01:00 06/23/24 01:30 Temperature Pulse Rate 75 77 Respiratory Rate Blood Pressure 123/75 Pulse Oximetry 98 100 Oxygen Flow Rate 06/23/24 01:30 06/23/24 02:09 06/23/24 02:14 Temperature 98.1 F Pulse Rate 76 74 Respiratory Rate 20 Blood Pressure 128/78 122/77 Pulse Oximetry 98 99 Oxygen Flow Rate 0 06/23/24 04:00 06/23/24 06:00 Temperature Pulse Rate 78 75 Respiratory Rate 18 18 Blood Pressure 103/56 L 108/58 L Pulse Oximetry 99 99 Oxygen Flow Rate Oxygen Delivery Method Room Air Oxygen Flow Rate 0 Narrative Exam Narrative: GENERAL: This is a well-nourished, well-developed patient, in no apparent distress. HEAD: Atraumatic. Normocephalic. No temporal or scalp tenderness. EYES: Pupils equal round and reactive. Extraocular motions intact. No scleral icterus. No injection or drainage. ENT: Mucous membranes pink and moist. NECK: Trachea midline. No JVD, bruits or lymphadenopathy. Supple, nontender, no meningeal signs. CARDIOVASCULAR: Regular rate and rhythm without murmurs, gallops, or rubs. RESPIRATORY: Clear to auscultation. GASTROINTESTINAL: Abdomen soft, non-tender, nondistended. EXTREMITIES: No clubbing, cyanosis, or edema. BACK: Nontender without deformity or crepitance. No flank tenderness. NEUROLOGIC: Alert, oriented, speech fluent, full upper and lower motor strength, no focal deficits evident. DERMATOLOGIC: No rashes or skin lesions. Objective Imaging Chest x-ray: Radiologist's impression: No acute cardiopulmonary pathology. 06/23 Labs 06/23/24 04:08 06/23/24 09:00 Labs: Laboratory Results - last 24 hr 06/22/24 06/22/24 06/23/24 23:05 23:08 00:50 WBC 11.9 H RBC 5.44 H Hgb 14.0 Hct 43.5 MCV 79.9 L MCH 25.8 L MCHC 32.2 RDW 17.5 H Plt Count 346 Neut % (Auto) 75.2 H Lymph % (Auto) 15.6 L [place] % (Auto) 8.4 Eos % (Auto) 0.1 L Baso % (Auto) 0.7 Neut # (Auto) 9000 H Lymph # (Auto) 1900 [place] # (Auto) 1000 H Eos # (Auto) 0 Baso # (Auto) 100 ABG Sample Site Right radial ABG pH 7.10 L* ABG pCO2 13.0 L* ABG pO2 133 H ABG HCO3 4 L ABG Total CO2 < 5 L ABG O2 Saturation 98 ABG Base Excess -23.4 L Lalo Test Positive VBG pH 7.05 L* VBG pCO2 19.8 L VBG pO2 38 VBG HCO3 6 L VBG Total CO2 5 L VBG O2 Saturation 52 L VBG Base Excess -23.2 L FiO2 % 21 % 21 % Sodium 133 L Potassium 4.0 Chloride 105 Carbon Dioxide < 5 L* BUN 10 Creatinine 0.85 Estimated GFR > 60 BUN/Creatinine Ratio 11.8 Glucose 630 H* Hemoglobin A1c Calcium 9.3 Total Bilirubin 0.7 AST 32 ALT 20 Alkaline Phosphatase 188 H Total Protein 8.4 H Albumin 4.9 Globulin 3.5 Albumin/Globulin Ratio 1.4 TSH Free T4 HCG, Quant < 2.39 Urine RBC Urine WBC Ur Squamous Epith Cells Urine Bacteria Ur Culture Indicated? Vol Urine Centrifuged Nasal Screen MRSA (PCR) Ketones 9.05 H 06/23/24 06/23/24 06/23/24 00:59 01:50 02:24 WBC RBC Hgb Hct MCV MCH MCHC RDW Plt Count Neut % (Auto) Lymph % (Auto) [place] % (Auto) Eos % (Auto) Baso % (Auto) Neut # (Auto) Lymph # (Auto) [place] # (Auto) Eos # (Auto) Baso # (Auto) ABG Sample Site ABG pH ABG pCO2 ABG pO2 ABG HCO3 ABG Total CO2 ABG O2 Saturation ABG Base Excess Lalo Test VBG pH VBG pCO2 VBG pO2 VBG HCO3 VBG Total CO2 VBG O2 Saturation VBG Base Excess FiO2 % Sodium 138 Potassium 4.5 Chloride 113 H Carbon Dioxide < 5 L* BUN 8 Creatinine 0.76 Estimated GFR > 60 BUN/Creatinine Ratio 10.5 Glucose 514 H* Hemoglobin A1c Calcium 7.9 L Total Bilirubin AST ALT Alkaline Phosphatase Total Protein Albumin Globulin Albumin/Globulin Ratio TSH Free T4 HCG, Quant Urine RBC 0-1/hpf Urine WBC None seen Ur Squamous Epith Cells 0-1 /hpf Urine Bacteria None seen Ur Culture Indicated? Cult not indicated Vol Urine Centrifuged 10ml (spun) Nasal Screen MRSA (PCR) Not detected Ketones 06/23/24 06/23/24 06/23/24 04:08 04:31 06:26 WBC 11.2 H RBC 5.13 Hgb 13.3 Hct 39.6 MCV 77.1 L MCH 26.0 MCHC 33.7 RDW 17.5 H Plt Count 297 Neut % (Auto) 68.3 Lymph % (Auto) 22.0 L [place] % (Auto) 8.8 Eos % (Auto) 0.3 L Baso % (Auto) 0.6 Neut # (Auto) 7700 H Lymph # (Auto) 2500 [place] # (Auto) 1000 H Eos # (Auto) 0 Baso # (Auto) 100 ABG Sample Site ABG pH ABG pCO2 ABG pO2 ABG HCO3 ABG Total CO2 ABG O2 Saturation ABG Base Excess Lalo Test VBG pH 7.15 L* VBG pCO2 18.8 L VBG pO2 78 H VBG HCO3 7 L VBG Total CO2 6 L VBG O2 Saturation 92 H VBG Base Excess -20.4 L FiO2 % 21 % Sodium 141 Potassium 3.0 L D 3.2 L Chloride 118 H Carbon Dioxide < 5 L* BUN 8 Creatinine 0.71 Estimated GFR > 60 BUN/Creatinine Ratio 11.3 Glucose 215 H D Hemoglobin A1c 13.5 H Calcium 8.8 Total Bilirubin AST ALT Alkaline Phosphatase Total Protein Albumin Globulin Albumin/Globulin Ratio TSH 61.50 H Free T4 0.35 L HCG, Quant Urine RBC Urine WBC Ur Squamous Epith Cells Urine Bacteria Ur Culture Indicated? Vol Urine Centrifuged Nasal Screen MRSA (PCR) Ketones Assessment & Plan Assessment & Plan narrative: DKA - DM diagnosed in 04/10 with A1C >12 - failed increased outptient metformin and was just about to start Lantus 10 units - insulin drip, IVFs, ICU monitoring - anticipate discharge on Lantus with sliding scale coverage, and outpatient follow-up to discuss insulin pump - she will need a glucagon pen as well at discharge Anxiety / Depression - Lexapro -appears adequately controlled. Monitor as an outpatient with recent life altering diagnosis. Hypothyroidism - levothyroxine - TSH 61.5. Discussed the importance of medication compliance DVT prophylaxis - SCDs Care is discussed with the patient as well as her parents at bedside. Lengthy discussion of the nature, treatment, and long-term management of diabetes. Code status: Full code. Her surrogate decision maker are her parents. RENÉE: 1-2 days Quality MIPS - Admit I confirm the patient?s Advance Care Plan is present, Code status is documented, Surrogate decision maker is in patient?s record [If Yes, STOP here]: Yes MIPS - Meds 'Current medications' to include all prescriptions, [id number] products, herbals, cannabis/cannabidiol products, and vitamin/mineral/dietary (nutritional) supplements. I have utilized all available resources to obtain, update, or review the patient?s current medications. [If Yes, STOP here]: Yes PROFEE Forest And Conservation Worker Document charge(s): No Charge Codes Initial inpatient/observation care: 11319
[2024-06-23] MEDS: POTASSIUM CHLORIDE 20 MEQ TAB 40 MEQ PO ×2 (08:09→23:42)
[2024-06-23 09:23] LABS: BUN Creatinine Ratio 11.5 (6-22); Blood Urea Nitrogen 7 mg/dL (7-17); Calcium 8.8 mg/dL (8.4-10.2); Chloride 117 mmol/L (98-107); Estimated Glomerular Filt Rate > 60 mL/min (>60); Glucose 118 mg/dL (70-100); HEMOLYSIS < 15 (0-50); Potassium 3.3 mmol/L (3.4-5.1); Sodium 139 mmol/L (137-145)
[2024-06-23 09:49] LABS: Carbon Dioxide 7 mmol/L (22-32)
[2024-06-23] MEDS: DEXTROSE 50 % IN WATER 25 GM/50 ML SYRINGE IV ×2 (10:12→16:16)
[2024-06-23] MEDS: LEVOTHYROXINE 50 MCG TABLET 150 MCG PO (10:59)
[2024-06-23] MEDS: ESCITALOPRAM 10 MG TABLET PO (11:49)
[2024-06-23] MEDS: DEXTROSE 5%-0.45NS W/KCL 20MEQ 1,000 ML 250 MEQ IV (11:50)
[2024-06-23 13:03] LABS: Base Excess VBG -13.8 mmol/L (0-4); HCO3 VBG 11 mmol/L (24-28); Oxygen Saturation VBG 85 % (70-75); PCO2 VBG 24.9 mmHg (45-50); PO2 VBG 56 mmHg (35-45); Total CO2 VBG 11 mmol/L (24-29); pH VBG 7.27 (7.33-7.43)
[2024-06-23 13:26] LABS: BUN Creatinine Ratio 13.2 (6-22); Blood Urea Nitrogen 7 mg/dL (7-17); Calcium 8.3 mg/dL (8.4-10.2); Chloride 115 mmol/L (98-107); Estimated Glomerular Filt Rate > 60 mL/min (>60); Glucose 185 mg/dL (70-100); HEMOLYSIS < 15 (0-50); Potassium 3.4 mmol/L (3.4-5.1); Sodium 135 mmol/L (137-145)
[2024-06-23 13:29] LABS: Carbon Dioxide 8 mmol/L (22-32)
--- NOTE | 2024-06-23 15:14 | CM.DANOTE ---
Patient is a 18 yo female who was admitted INPT Status on 06/23/24 today for DKA. Pt has [employer] for insurance and her PCP is Dr. Apoorva Mendez at [facility]. EMR was reviewed. Per MD, pt with new dx of diabetes which originally was thought to be type 2 but admitted with DKA and determined type 1 DM. Pt was started on Metformin outpt with Rx for insulin which has not been started yet. Pt currently on insulin drip and very acidodic and not medically stable to d/c yet today and may need 1-2 days. Pt already established with Meagan Vulnerability Assessment Analyst at [facility] and has upcoming scheduled appointment and pt has been seen regularly with her PCP Dr. Mendez. Pt lives in [place] with her family and is active and independent at baseline and works and drives. Pt has very supportive large local family. Plan: SW to follow for providing additional support groups/resources for young newly dx type one DM for additional support prior to discharge and to follow for any further identified discharge planning needs. AMADEO Morales Discharge Planning/Care Management CM Discharge Assessment Start: 06/23/24 15:12 Freq: Status: Active Protocol: Document 06/23/24 15:12 BF (Rec: 06/23/24 15:14 BF [id number]) Discharge Planning Assessment Assigned Plastics Nurse AMADEO Feng DPOA/Assigned Designee Name informally mother Kelle Contact Information [phone] Advance Directives? No Advance Directives on File No History Provided By Patient,Family Member,Parents, Medical Record Has Patient been admitted in last 30 No days? Prior Living Arrangements House Household Members family Type of transporation used prior to Drives own vehicle admit Independent with ADL's Yes Is patient alert and oriented? Yes Caregiver for Another No Discharge Plan Home Transportation Arrangement Family to transport Referrals Initiated Postal Delivery Officer,Other Additional Comment Already established recently with Postal Delivery Officer/Educator Meagan and has upcoming scheduled apt Whiteboard Updated in Patient Room with Yes name and ext. # of Plastics Nurse Review Status In Process Please Provide Date Initial DC 06/23/24 Assessment Was Performed Next Review Type Continued Stay Review
[2024-06-23] MEDS: ACETAMINOPHEN 325 MG TABLET 650 MG PO (16:43)
--- NOTE | 2024-06-23 17:23 | PC.NURSE ---
Pt remains alert, oriented throughout shift. Insulin titrated per DKA protocol, see FSBS charting and labs, remains on insulin infusion. Mild headache controlled with PRN medications. Pt up to toilet with SBA to manage pump. Family at bedside, updated throughout shift.
[2024-06-23 17:42] LABS: BUN Creatinine Ratio 9.3 (6-22); Blood Urea Nitrogen 5 mg/dL (7-17); Calcium 8.7 mg/dL (8.4-10.2); Carbon Dioxide 10 mmol/L (22-32); Chloride 115 mmol/L (98-107); Estimated Glomerular Filt Rate > 60 mL/min (>60); Glucose 106 mg/dL (70-100); HEMOLYSIS < 15 (0-50); Potassium 3.6 mmol/L (3.4-5.1); Sodium 136 mmol/L (137-145)
[2024-06-23 21:23] LABS: BUN Creatinine Ratio 9.1 (6-22); Blood Urea Nitrogen 5 mg/dL (7-17); Calcium 8.8 mg/dL (8.4-10.2); Chloride 113 mmol/L (98-107); Estimated Glomerular Filt Rate > 60 mL/min (>60); Glucose 124 mg/dL (70-100); HEMOLYSIS < 15 (0-50); Potassium 3.3 mmol/L (3.4-5.1); Sodium 136 mmol/L (137-145)
[2024-06-23 21:45] LABS: Carbon Dioxide 8 mmol/L (22-32)
[2024-06-24] VITALS (26 sets, daily range): BP systolic 81–110; BP diastolic 51–62; PULSE 62–85; RESP 16–20; TEMP 36.3; O2SAT 96–100
[2024-06-24 01:35] LABS: BUN Creatinine Ratio 7.5 (6-22); Blood Urea Nitrogen 4 mg/dL (7-17); Calcium 8.6 mg/dL (8.4-10.2); Chloride 114 mmol/L (98-107); Estimated Glomerular Filt Rate > 60 mL/min (>60); Glucose 120 mg/dL (70-100); HEMOLYSIS < 15 (0-50); Potassium 3.4 mmol/L (3.4-5.1); Sodium 135 mmol/L (137-145)
[2024-06-24 01:41] LABS: Carbon Dioxide 8 mmol/L (22-32)
[2024-06-24 05:37] LABS: BUN Creatinine Ratio 7.3 (6-22); Blood Urea Nitrogen 4 mg/dL (7-17); Calcium 8.8 mg/dL (8.4-10.2); Chloride 114 mmol/L (98-107); Estimated Glomerular Filt Rate > 60 mL/min (>60); Glucose 136 mg/dL (70-100); HEMOLYSIS < 15 (0-50); Potassium 3.4 mmol/L (3.4-5.1); Sodium 135 mmol/L (137-145)
[2024-06-24] MEDS: LEVOTHYROXINE 50 MCG TABLET 150 MCG PO (05:37)
[2024-06-24 05:41] LABS: Carbon Dioxide 7 mmol/L (22-32)
[2024-06-24 08:07] LABS: C Peptide 0.3 ng/mL (1.1-4.4)
--- NOTE | 2024-06-24 08:49 | P.PN_ITS ---
Subjective Subjective Date Patient Seen: 06/24/24 Time Patient Seen: 08:05 Interval history: Narrative: 18 y/o with PMH of DM diagnosed 3 months ago, hypothyroidism, anxiety and depression, presented to ED confused and found to be in DKA, She was on metformin that was recently increased to 1 g bid and she was just prescribed long acting insulin 10 units daily but still did not not fill it. Started on insulin drip, IVFs and admitted for further treatment. Patient reports feeling better this morning. She has been using a Dexcom blood sugar monitor at home on a 2 week trial through diabetes education. Blood sugars were in the 200-300s range she states. She has been on Synthroid but reports she has only been intermittently compliant. Her TSH returned at 61.5. She is seen with her mother and father at bedside. She admits to history of depression but states this is controlled on escitalopram. She denies recent is, infectious, chest pain, shortness for breath, vomiting, abdominal pain, diarrhea, constipation, urinary or genitourinary complaints. Subjective: She reports feeling hungry this morning. Unfortunately her insulin infusion was stopped for 4 hours overnight and her bicarbonate is back down to 7. Exam Vital Signs (past 8 hours): - 06/24/24 00:00 06/24/24 00:00 06/24/24 00:30 Pulse Rate 65 65 Respiratory Rate Blood Pressure 108/60 Pulse Oximetry 100 99 Oxygen Flow Rate 0 06/24/24 01:00 06/24/24 01:00 06/24/24 01:30 Pulse Rate 67 64 Respiratory Rate Blood Pressure 107/60 Pulse Oximetry 99 99 Oxygen Flow Rate 0 06/24/24 01:59 06/24/24 03:00 06/24/24 03:03 Pulse Rate 62 62 Respiratory Rate Blood Pressure 107/57 L Pulse Oximetry 99 99 Oxygen Flow Rate 0 0 06/24/24 03:30 06/24/24 04:00 06/24/24 04:00 Pulse Rate 64 63 Respiratory Rate Blood Pressure 100/62 Pulse Oximetry 99 100 Oxygen Flow Rate 0 0 06/24/24 04:30 06/24/24 05:00 06/24/24 05:00 Pulse Rate 69 68 Respiratory Rate Blood Pressure 102/58 L Pulse Oximetry 100 100 Oxygen Flow Rate 06/24/24 05:30 06/24/24 06:00 06/24/24 06:00 Pulse Rate 65 65 Respiratory Rate 16 Blood Pressure 93/53 L Pulse Oximetry 99 99 Oxygen Flow Rate 0 06/24/24 06:30 06/24/24 07:00 06/24/24 07:00 Pulse Rate 62 62 Respiratory Rate Blood Pressure 100/57 L Pulse Oximetry 99 99 Oxygen Flow Rate Oxygen Delivery Method Room Air Oxygen Flow Rate 0 Narrative Exam Narrative: GENERAL: This is a well-nourished, well-developed patient, in no apparent distress. HEAD: Atraumatic. Normocephalic. No temporal or scalp tenderness. EYES: Pupils equal round and reactive. Extraocular motions intact. No scleral icterus. No injection or drainage. ENT: Mucous membranes pink and moist. NECK: Trachea midline. No JVD, bruits or lymphadenopathy. Supple, nontender, no meningeal signs. CARDIOVASCULAR: Regular rate and rhythm without murmurs, gallops, or rubs. RESPIRATORY: Clear to auscultation. GASTROINTESTINAL: Abdomen soft, non-tender, nondistended. EXTREMITIES: No clubbing, cyanosis, or edema. BACK: Nontender without deformity or crepitance. No flank tenderness. NEUROLOGIC: Alert, oriented, speech fluent, full upper and lower motor strength, no focal deficits evident. DERMATOLOGIC: No rashes or skin lesions. Objective Imaging Chest x-ray: Radiologist's impression: No acute cardiopulmonary pathology. 06/23 Labs 06/23/24 04:08 06/24/24 04:59 Labs: Laboratory Results - last 24 hr 06/23/24 06/23/24 06/23/24 09:00 12:56 12:58 VBG pH 7.27 L VBG pCO2 24.9 L VBG pO2 56 H VBG HCO3 11 L VBG Total CO2 11 L VBG O2 Saturation 85 H VBG Base Excess -13.8 L Sodium 139 Potassium 3.3 L Chloride 117 H Carbon Dioxide 7 L* BUN 7 Creatinine 0.61 Estimated GFR > 60 BUN/Creatinine Ratio 11.5 Glucose 118 H C-Peptide 0.3 L Calcium 8.8 06/23/24 06/23/24 06/23/24 13:00 17:10 21:02 VBG pH VBG pCO2 VBG pO2 VBG HCO3 VBG Total CO2 VBG O2 Saturation VBG Base Excess Sodium 135 L 136 L 136 L Potassium 3.4 3.6 3.3 L Chloride 115 H 115 H 113 H Carbon Dioxide 8 L* 10 L 8 L* BUN 7 5 L 5 L Creatinine 0.53 0.54 0.55 Estimated GFR > 60 > 60 > 60 BUN/Creatinine Ratio 13.2 9.3 9.1 Glucose 185 H 106 H 124 H C-Peptide Calcium 8.3 L 8.7 8.8 06/24/24 06/24/24 01:00 04:59 VBG pH VBG pCO2 VBG pO2 VBG HCO3 VBG Total CO2 VBG O2 Saturation VBG Base Excess Sodium 135 L 135 L Potassium 3.4 3.4 Chloride 114 H 114 H Carbon Dioxide 8 L* 7 L* BUN 4 L 4 L Creatinine 0.53 0.55 Estimated GFR > 60 > 60 BUN/Creatinine Ratio 7.5 7.3 Glucose 120 H 136 H C-Peptide Calcium 8.6 8.8 [facility] Medical History Hypothyroidism Oligomenorrhea Family History Father Hypothyroidism Social History household members: family Smoking Status: Never smoker Assessment & Plan Assessment & Plan narrative: DKA - 1st admit for DKA, new diagnosis of type 1 diabetes. C-peptide and anti-islet cell antibodies ordered and pending.- DM diagnosed in 04/10 with A1C >12, presumed type 2 at that time and treated with metformin. - failed increased outpatient metformin and was just about to start Lantus 10 units but didn't fill prescription. - insulin drip, IVFs, ICU monitoring. Do not stop insulin gtt until DKA resolved, treat hypoglycemic with dextrose/diet. Will review with nursing/pharmacy. - anticipate discharge on Lantus with sliding scale coverage, and outpatient follow-up to discuss insulin pump - she will need a glucagon pen as well at discharge - education provided. Anxiety / Depression - Lexapro - appears adequately controlled. Monitor as an outpatient with recent life altering diagnosis. Hypothyroidism - levothyroxine, admitting she had missed many doses - TSH 61.5. Discussed the importance of medication compliance for this and diabetes DVT prophylaxis - SCDs Care is discussed with the patient as well as her parents at bedside. Lengthy discussion of the nature, treatment, and long-term management of diabetes. Code status: Full code. Her surrogate decision maker are her parents. RENÉE: 1-2 days IH PROFEE [employer] Document charge(s): No Charge Codes Subsequent inpatient/observation care: [id number]
[2024-06-24] MEDS: ESCITALOPRAM 10 MG TABLET PO (09:15)
[2024-06-24 10:28] LABS: BUN Creatinine Ratio 7.3 (6-22); Blood Urea Nitrogen 4 mg/dL (7-17); Calcium 8.5 mg/dL (8.4-10.2); Carbon Dioxide 12 mmol/L (22-32); Chloride 111 mmol/L (98-107); Estimated Glomerular Filt Rate > 60 mL/min (>60); Glucose 224 mg/dL (70-100); HEMOLYSIS < 15 (0-50); Potassium 3.7 mmol/L (3.4-5.1); Sodium 133 mmol/L (137-145)
[2024-06-24] MEDS: INSULIN LISPRO 100 UNIT/ML 3ML VIAL SUBCUT ×3 (11:08→21:11)
[2024-06-24] MEDS: INSULIN GLARGINE 100 UNIT/ML 3ML PEN 10 UNIT SUBCUT (11:08)
[2024-06-24] MEDS: DEXTROSE 5%-0.45NS W/KCL 20MEQ 1,000 ML 150 MEQ IV (11:57)
--- NOTE | 2024-06-24 12:09 | CM.DPC ---
DCP Cont: Per MD, pt remains on insulin drip and not yet stable for discharge home today but making progress. SW met bedside with pt, mother, and RN and explained role and pt confirms that she is aware of her appoint in two days on 06/26 with Gear Shaver Set Up Operator Meagan and pt has met with her a few times already and received helpful handouts and information but pt wanting more education on the new insulin pen she will be using at home. RN confirms they can do teaching today and tomorrow before discharge and pt and mother appreciative. SW discussed Sampler Ovens Tracey will likely meet with her bedside tomorrow Mon as well to answer further food and medication questions. Pt states she has an Aunt that also has DM Type 1 that she can get support from and ask questions. SW provided additional handouts on Young Adult DM Type 1 resources and supports including online and social media options. Pt does not have next PCP appointment scheduled until July and SW will notify the TCM group tomorrow Tue to request an apt with Dr. Mendez within a week of discharge and pt and mother appreciative. AMADEO Morales
[2024-06-24 14:39] LABS: BUN Creatinine Ratio 9.6 (6-22); Blood Urea Nitrogen 5 mg/dL (7-17); Calcium 8.6 mg/dL (8.4-10.2); Carbon Dioxide 12 mmol/L (22-32); Chloride 108 mmol/L (98-107); Estimated Glomerular Filt Rate > 60 mL/min (>60); Glucose 243 mg/dL (70-100); HEMOLYSIS < 15 (0-50); Potassium 3.6 mmol/L (3.4-5.1); Sodium 130 mmol/L (137-145)
[2024-06-24 18:04] LABS: BUN Creatinine Ratio 9.4 (6-22); Blood Urea Nitrogen 5 mg/dL (7-17); Calcium 8.7 mg/dL (8.4-10.2); Carbon Dioxide 13 mmol/L (22-32); Chloride 104 mmol/L (98-107); Estimated Glomerular Filt Rate > 60 mL/min (>60); Glucose 304 mg/dL (70-100); HEMOLYSIS < 15 (0-50); Potassium 3.6 mmol/L (3.4-5.1); Sodium 130 mmol/L (137-145)
[2024-06-24 22:28] LABS: BUN Creatinine Ratio 11.3 (6-22); Blood Urea Nitrogen 6 mg/dL (7-17); Calcium 8.8 mg/dL (8.4-10.2); Carbon Dioxide 13 mmol/L (22-32); Chloride 106 mmol/L (98-107); Estimated Glomerular Filt Rate > 60 mL/min (>60); Glucose 311 mg/dL (70-100); HEMOLYSIS < 15 (0-50); Potassium 3.2 mmol/L (3.4-5.1); Sodium 132 mmol/L (137-145)
[2024-06-25 04:00] VITALS: BP 118/63; PULSE 54; RESP 16; TEMP 36.2; O2SAT 100
[2024-06-25 04:41] VITALS: PULSE 62; O2SAT 100
[2024-06-25 04:42] VITALS: BP 118/63; PULSE 57; O2SAT 100
[2024-06-25 05:20] LABS: BUN Creatinine Ratio 13.2 (6-22); Blood Urea Nitrogen 7 mg/dL (7-17); Carbon Dioxide 15 mmol/L (22-32); Chloride 107 mmol/L (98-107); Estimated Glomerular Filt Rate > 60 mL/min (>60); Glucose 267 mg/dL (70-100); HEMOLYSIS < 15 (0-50); Potassium 3.2 mmol/L (3.4-5.1); Sodium 133 mmol/L (137-145)
[2024-06-25] MEDS: LEVOTHYROXINE 50 MCG TABLET 150 MCG PO (06:13)
[2024-06-25 07:32] VITALS: BP 110/56; PULSE 59; O2SAT 98
[2024-06-25 08:00] VITALS: TEMP 36.4
[2024-06-25] MEDS: ESCITALOPRAM 10 MG TABLET PO (08:15)
[2024-06-25] MEDS: INSULIN GLARGINE 100 UNIT/ML 3ML PEN 10 UNIT SUBCUT (08:15)
[2024-06-25] MEDS: INSULIN LISPRO 100 UNIT/ML 3ML VIAL SUBCUT ×2 (08:16→11:26)
[2024-06-25] MEDS: POTASSIUM CHLORIDE 20 MEQ TAB 40 MEQ PO (08:26)
--- NOTE | 2024-06-25 09:03 | PM.DS.1 ---
History of Present Illness History of Present Illness Chief complaint: really high blood sugars Narrative: From H&P: 18 y/o with PMH of DM diagnosed 3 months ago, hypothyroidism, anxiety and depression, presented to ED confused and found to be in DKA, She was on metformin that was recently increased to 1 g bid and she was just prescribed long acting insulin 10 units daily but still did not not fill it. Started on insulin drip, IVFs and admitted for further treatment. Interim history: Patient reports feeling better this morning. She has been using a Dexcom blood sugar monitor at home on a 2 week trial through diabetes education. Blood sugars were in the 200-300s range she states. She has been on Synthroid but reports she has only been intermittently compliant. Her TSH returned at 61.5. She is seen with her mother and father at bedside. She admits to history of depression but states this is controlled on escitalopram. She denies recent is, infectious, chest pain, shortness for breath, vomiting, abdominal pain, diarrhea, constipation, urinary or genitourinary complaints. Discharge Providers Provider Date of admission: 06/23/24 00:51 Discharge Date: 06/25/24 Primary care physician: Apoorva Mendez DO Consults: 06/23/24 00:16 Consult to Dietitian, Adult Routine Comment: Reason For Exam: Once DKA resolved Discharge provider: Lalo Grace MD Summary Hospital Course Discharge Diagnosis: 1. DKA, present on admission and resolved. - 1st admit for DKA, new diagnosis of type 1 diabetes. C-peptide and anti-islet cell antibodies ordered and pending.- DM diagnosed in 04/10 with A1C >12, presumed type 2 at that time and treated with metformin. - education provided. 2. DM 1, present on admission and active. 3. Anxiety / Depression, present on admission and stable. - Lexapro - appears adequately controlled. Monitor as an outpatient with recent life altering diagnosis. 4. Hypothyroidism, present on admission and stable. - levothyroxine, admitting she had missed many doses - TSH 61.5. Discussed the importance of medication compliance for this and diabetes Hospital Course: She was admitted and treated for DKA with insulin drip and IV fluids. She improved and was converted to Lantus subcutaneous. She failed a trial with metformin. She was stable for discharge, has no signs of infection. She will stop metformin be started on Lantus 10 HS with 5 AC of lispro. A written Rx for a CGM was provided at [facility]. Status at Discharge Cognitive/behavioral status at discharge: oriented Functional status at discharge: independent ambulation Overall status at discharge: patient is back to baseline Time Spent with Patient Time spent: Greater than 30 minutes Exam Vital Signs (past 8 hours): - 06/25/24 04:00 06/25/24 04:41 06/25/24 04:42 Temperature 97.2 F L Pulse Rate 54 L 62 Respiratory Rate 16 Blood Pressure 118/63 118/63 Pulse Oximetry 100 100 Oxygen Delivery Method Oxygen Flow Rate 0 06/25/24 04:42 06/25/24 07:00 06/25/24 07:32 Temperature Pulse Rate 57 L Respiratory Rate Blood Pressure 110/56 L Pulse Oximetry 100 Oxygen Delivery Method Room Air Oxygen Flow Rate 06/25/24 07:32 06/25/24 08:00 Temperature 97.6 F Pulse Rate 59 L Respiratory Rate Blood Pressure Pulse Oximetry 98 Oxygen Delivery Method Oxygen Flow Rate Oxygen Delivery Method Room Air Oxygen Flow Rate 0 Narrative Exam Narrative: NAD, alert and oriented. Fluent speech. Lungs are clear, normal rate and effort. Heart is regular, no murmur gallop or rub. Abdomen is soft, non distended. Extremities are free of edema. Objective Imaging Chest x-ray: Radiologist's impression: No acute cardiopulmonary pathology. Labs 06/23/24 04:08 06/25/24 04:31 Labs: Laboratory Results - last 24 hr 06/24/24 06/24/24 06/24/24 09:55 14:11 17:45 Sodium 133 L 130 L 130 L Potassium 3.7 3.6 3.6 Chloride 111 H 108 H 104 Carbon Dioxide 12 L 12 L 13 L BUN 4 L 5 L 5 L Creatinine 0.55 0.52 0.53 Estimated GFR > 60 > 60 > 60 BUN/Creatinine Ratio 7.3 9.6 9.4 Glucose 224 H 243 H 304 H Calcium 8.5 8.6 8.7 06/24/24 06/25/24 21:49 04:31 Sodium 132 L 133 L Potassium 3.2 L 3.2 L Chloride 106 107 Carbon Dioxide 13 L 15 L BUN 6 L 7 Creatinine 0.53 0.53 Estimated GFR > 60 > 60 BUN/Creatinine Ratio 11.3 13.2 Glucose 311 H 267 H Calcium 8.8 9.0 PFSH Medical History Hypothyroidism Oligomenorrhea Family History Father Hypothyroidism Social History household members: family Smoking Status: Never smoker Discharge Assessment & Plan Assessment and Plan Assessment: 1. DKA, present on admission and resolved. - 1st admit for DKA, new diagnosis of type 1 diabetes. C-peptide and anti-islet cell antibodies ordered and pending.- DM diagnosed in 04/10 with A1C >12, presumed type 2 at that time and treated with metformin. - failed increased outpatient metformin and was just about to start Lantus 10 units but didn't fill prescription. 2. DM 1, present on admission and active. 3. Anxiety / Depression, present on admission and stable. - Lexapro 4. Hypothyroidism, present on admission and stable. Plan of Treatment: Stable for discharge home with close follow up. Discharge Plan Discharge Plan Patient Disposition: Home Provider Discharge Comment: Stable for discharge home with new start of insulin. Discharge orders & Medications Prescriptions: New insulin lispro [Admelog U-100 Insulin lispro] 100 unit/mL Solution 5 unit SUBCUT ACHS Qty: 10 2RF Continued levothyroxine 150 mcg tablet 150 mcg PO DAILY Qty: 90 3RF insulin glargine 100 unit/mL (3 mL) insulin pen 10 unit SUBCUT QPM Qty: 3 3RF (DME) pen needle, diabetic 30 gauge x 5/16 needle See Rx Instructions .Route Qty: 100 0RF Rx Instructions: As directed to use with insulin escitalopram oxalate [Lexapro] 10 mg tablet 10 mg PO DAILY Qty: 30 3RF Discontinued metformin 500 mg tablet 500 mg PO BID Qty: 60 3RF Rx Instructions: After 3-5 days, please increase to 1,000 mg (2 tablets) twice daily Follow up/Referrals: Apoorva Mendez DO [Primary Care Provider] - Discharge Health Status Multidrug resistant organism: No MDRO Diet/Activity/Treatments Diet: Carb-consistent/Diabetic Activity: As tolerated. Visit Report/Discharge Packet Instructions: DI for Diabetic Ketoacidosis Stand Alone Forms: Patient Portal/API Discharge Data Primary Care Provider: Apoorva Mendez
[2024-06-25] MEDS: INSULIN GLARGINE 100 UNIT/ML 3ML PEN SUBCUT (10:42)
--- NOTE | 2024-06-25 11:16 | DIET.CONS ---
Dietary Consultation Note Admission Date: 06/23/2024 00:51 Assessment: 18 y F admitted with DKA. Consulted for DM educ. Met with patient and parents in room. Pt seeing DM educ tomorrow after d/c. Feeling overwhelmed with amount of information. UBW: Weight from 205 lb to 157 lb, 23% weight loss within 6 months, severe Pt has noted mild muscle mass loss in legs. NFPE with no findings for temples, clavicle region, interosseous, buccal and orbital fat pads. Ht: 157.48 cm Wt: 71.5 kg BMI: 30.2 Last BM: 06/25/24 (06/25/24 06:00) MNA: 11 Keith Score: 22 Diet: 06/24/24 Breakfast Carbohydrate Consistent Diet Diet Modifications: Carbohydrate level: Medium (3 CHO) Reflex DM orders: No Food Texture: Level 7 - Regular Liquid Consistency: Level 0 - Thin Nutrition Percent Meal Consumed 100% 06/24/24 18:00 Labs: RBC 5.13 X10^6/uL (4.0-5.2) 06/23/24 04:08 Hgb 13.3 g/dL (12.0-16.0) 06/23/24 04:08 Hct 39.6 % (36-46) 06/23/24 04:08 Creatinine 0.53 mg/dL (0.52-1.04) 06/25/24 04:31 Hemoglobin A1c 13.5 % (4.0-6.0) H 06/23/24 04:08 Nutrition Diagnosis: Altered nutrition related lab values (BG) r/t endocrine dysfunction aeb pt presenting in DKA Interventions: 1. Provided insulin dosing educ with pharmacy and RN based on d/c plan 2. Overview of CHO sources/counting basics 3. Educ on rule of 15s with handout Monitoring/Evaluations: f/u with [facility] Electronically Signed by: Tracey Jackson 06/25/24 11:16 Clinical Dietitian [address] [address]
--- NOTE | 2024-06-25 11:43 | CM.DPC ---
DCP Discharge Home Per MD, pt off insulin drip and labs improved and medically stable to discharge home today and outpt f/u with PCP. Isotope Hydrologist kindly met bedside with pt for ongoing education on insulin and recommended dietary options and teaching. Pt has scheduled Diabetes Education appt tomorrow Tu with Meagan at [facility] for ongoing support. NABOR alerted TCM team on pt discharge and requested earlier f/u appointment with her PCP Dr. Mendez within the week rather than her currently scheduled appointment in July. Family bedside and can provide transport home. NABOR provided young adult Diabetes Type 1 resources and supports to pt yesterday. AMADEO Morales
[2024-06-27 10:23] LABS: Antipancreatic Islet Cells Negative (Neg:<1:1)
== END 2024-06-25 11:57 | disposition home or self-care (01) | DRG 639 ==
LOC: ED 06-23 00:22 → AC 06-23 00:52 → ICU 06-23 01:01
PROVIDERS: Internal Medicine; Admitting Provider Internal Medicine; Emergency Provider Emergency Medicine; PCP Family Medicine; Referring Provider Emergency Medicine; Visit Provider Internal Medicine
DX: E10.10 Type 1 diabetes mellitus with ketoacidosis without coma (principal); F41.9 Anxiety disorder, unspecified; F32.A Depression, unspecified; E03.8 Other specified hypothyroidism; E06.3 Autoimmune thyroiditis; T38.1X6A Underdosing of thyroid hormones and substitutes, initial encounter; Z79.4 Long term (current) use of insulin; Z79.890 Hormone replacement therapy; Z79.84 Long term (current) use of oral hypoglycemic drugs; Z91.148 Patient's other noncompliance with medication regimen for other reason
CPT/HCPCS: 36415; 36600; 71045; 80048; 80053; 81003; 81015; 82009; 82805; 82962; 83036; 84132; 84439; 84443; 84681; 84702; 85025; 86341; 87797; 96361; 96374; 99284; 99291; J1815

== ENCOUNTER → 2024-06-26 08:25 | Outpatient (CLI) | payer OTHER, SELFPAY ==
[2024-06-23 01:08] VITALS: BMI 30.2
--- NOTE | 2024-06-26 17:26 | DIAB.FU ---
Addendum entered by Meagan Gaming 07/03/24 11:39: 07/03/24 phone call: taking 12u HS basal and 5u bolus TID. Still waking with FBG >180mg/dl. Will increase to 14u HS basal tonight. By Tuesday if FBG >150, increase to 16u. By Tuesday if FBG >150, increase 18u. Can increase bolus to 6u TID. RD [facility] f/u in one week. Original Note: Follow-up Diabetes Education Assessment Name: Jessica Terrazas Date: 06/26/24 Time: 320-594w Dx: T1 Diabetes Provider: Andrea Corrales presents for follow-up DM visit, accompanied by her mother, Kelle. Newly diagnosed with DM with a 10.5% hgA1c. Just one year ago had hgA1c 5.2%. Patient also has PMH of hypothyroidism. Reported rapid onset of symptoms, eye sight changes, frequent urination and thrist over one month, weight loss of 20# over weeks reported in Feb/Mar 2024, and presentation of BG in the 400-500mg/dl, this RD has concerns about type of diabetes T2 vs PETE vs T1. Cpeptide low, indicating liklihood of T1 or PETE diagnosis. Recent DKA admission. Reports SOB, confusion, fatigue, and excessive urination at that time. Diagnosed officially with T1DM and started on basal/bolus insulin therapy with CGM rx. Was unable to start basal insulin last week, as we had discussed , prior to this event. She is open to insulin pump therapy, and after discussion about pump options prefers Medtronic 780G and [employer] connect CGM. Currently using Dexcom G7. Has questions about carb counting and insulin dosing. Anthropometrics: Ht: 63 Wt: 163# reported 193# 04/10 Weight history: Reports a wt change of 205 to 184# over a few weeks in Feb or Mar 2024 Physical Activity: Walking daily. Self-Monitoring Blood Glucose: Wearing CGM and BG are above target but improved with insulin therapy. TIR: 78% very high 22% high 0% in range 0% low avmg/dl GMI: % std dev: 26 mg/dl variance: 9.6% Last TIR: 100% very high 0% high 0% in range 0% low avmg/dl GMI: 12.4% std dev: 34 mg/dl variance: 8.8% Diabetes Medications: 1000mg Metformin BID-- d/c 10u Glargine 5u Lispro ac Pertinent Labs: HgA1c: 5.2% 05/16/2023 10.5% 03/2024 Cpeptide: 1 L Past Medical History: (Last Updated 05/30/23 @ 12:28 by Yomaira Walters) Hypothyroidism Oligomenorrhea Intervention: This participant was very receptive. Provided appropriate educational handouts. Discussed the following topics: hypoglycemia s/s and Rule of 15 treatment Insulin types and action and dosing BG Goals Insulin pump types, safety, action and connection to CGM Reducing BG over time safely Carb counting and portions Created SMART goals for patient self-care and success. Goals: Check FBG- met Stay hydrated- continue Keep CHO low, especially simple CHO- continue Increase glargine to 12u - new Consider 14u HS this weekend if FBG >180mg/dl- new Practice Rule of 15 for lows prn- new Follow-up: CHRISTIANO ELLSWORTH follow-up in 1 week via phone and q 2 weeks. Messaged PCP about starting insulin pump therapy. Contacted [employer] for beginning process based on her choice of pump. Meagan Gaming, CHRISTIANO, SENG Certified Diabetes Care and Application Spec P: [phone] Thank you for this referral
== END ==
PROVIDERS: PCP Family Medicine; Referring Provider Family Medicine
DX: E10.9 Type 1 diabetes mellitus without complications (principal); E03.9 Hypothyroidism, unspecified; Z79.4 Long term (current) use of insulin; Z71.3 Dietary counseling and surveillance
CPT/HCPCS: G0108

== ENCOUNTER → 2024-07-10 08:26 | Outpatient (CLI) | payer OTHER, SELFPAY ==
[2024-06-23 01:08] VITALS: BMI 30.2
--- NOTE | 2024-07-10 11:13 | DIAB.MNTFU ---
Follow-up Diabetes Medical Nutrition Therapy Assessment Name: Jessica Terrazas Date: 07/10/24 Time: 530-570a Dx: T1 Diabetes Provider: Andrea Corrales presents for follow-up DM visit, accompanied by her mother, Kelle. Newly diagnosed with DM with a 10.5% hgA1c. Just one year ago had hgA1c 5.2%. Patient also has PMH of hypothyroidism. Reported rapid onset of symptoms, eye sight changes, frequent urination and thrist over one month, weight loss of 20# over weeks reported in Feb/Mar 2024, and presentation of BG in the 400-500mg/dl, this RD has concerns about type of diabetes T2 vs PETE vs T1. Cpeptide low, indicating liklihood of T1 or PETE diagnosis. Medtronic 780G ordered urgent. has questions about how insulin types work Also has questions regarding carb portions in specific foods Sometimes gets a headache with lower BG, but not low. Has one BG in the 70s and treated with glucose gel. Questions about BG and exercise. Currently using Dexcom G7. Has questions about carb counting and insulin dosing. Anthropometrics: Ht: 63 Wt: 171# 06/2024 PCP 193# 04/10 Weight history: Reports a wt change of 205 to 184# over a few weeks in Feb or Mar 2024 Physical Activity: Walking daily. Self-Monitoring Blood Glucose: Wearing CGM and BG have improved dramatically, especially the last week with increase in HS insulin to 14u. TIR: 39% very high 33% high 28% in range 0% low avmg/dl GMI: 8.7% std dev: 69 mg/dl variance: 30.4% Last TIR: 78% very high 22% high 0% in range 0% low avmg/dl GMI: % std dev: 26 mg/dl variance: 9.6% Diabetes Medications: 1000mg Metformin BID-- d/c 14u Glargine 6u Lispro ac Pertinent Labs: HgA1c: 5.2% 05/16/2023 10.5% 03/2024 Cpeptide: 1 ng/mL 04/2024 0.3 ng/mL 06/2024 Past Medical History: (Last Updated 05/30/23 @ 12:28 by Yomaira Walters) Hypothyroidism Oligomenorrhea Nutrition Rx: Carbohydrates: Meal: 30-45g Snack:15-30g Nutrition Diagnosis: - Physical inactivity r/t stage of change aeb pt report - improved - Nutrition and food related knowledge deficit r/t needing more info on label reading and carb counting pre pump placement aeb pt report- new Intervention: This participant was very receptive. Provided appropriate educational handouts. Discussed the following topics: hypoglycemia s/s and Rule of 15 treatment Insulin types and action and dosing Carb counting Portions for carbs Label reading for carbs, including examples Bolusing in pump for meals and corrections vials v pens for pump fill Symptoms of lower BG with improved numbers Fueling for exercise and insulin during that time Pairing CHO and protein Created SMART goals for patient self-care and success. Goals: Increase glargine to 12u - met Consider 14u HS this weekend if FBG >180mg/dl- met Practice Rule of 15 for lows prn- continue Keep 14u HS insulin, may consider reduce to 13u if waking <90mg/dl- new Read labels for CHO- new Follow-up: CHRISTIANO ELLSWORTH follow-up in 2 weeks or sooner if receive pump supplies Meagan Gaming RDN, SENG Certified Diabetes Care and Dough Machine Operator P: [phone] Thank you for this referral
== END ==
PROVIDERS: PCP Family Medicine; Referring Provider Family Medicine
DX: E10.9 Type 1 diabetes mellitus without complications (principal); E03.9 Hypothyroidism, unspecified; Z71.3 Dietary counseling and surveillance
CPT/HCPCS: 97803

== ENCOUNTER → 2024-07-16 16:57 | Outpatient (CLI) | payer OTHER, SELFPAY ==
[2024-06-23 01:08] VITALS: BMI 30.2
[2024-07-16 17:41] LABS: Add Manual Diff / Slide Review NO; Basophils Absolute Auto 100 /uL (0-100); Basophils Percent Auto 1.1 % (0-2); Eosinophils Absolute Auto 0 /uL (0-450); Eosinophils Percent Auto 0.9 % (2-4); Hematocrit 35.9 % (36-46); Hemoglobin 12.1 g/dL (12.0-16.0); Lymphocytes Absolute Auto 2500 /uL (1100-4500); Lymphocytes Percent Auto 50.1 % (25-40); Mean Corpuscular HGB Conc 33.6 % (30-36); Mean Corpuscular Hemoglobin 26.9 PG (26-34); Mean Corpuscular Volume 79.8 fL (80-100); Monocytes Absolute Auto 500 /uL (0-900); Neutrophils Absolute Auto 1800 /uL (1500-7000); Neutrophils Percent Auto 36.9 % (50-75); Platelet Count 229 X10^3/uL (150-400); Red Cell Distribution Width 16.8 % (11.6-14.8); White Blood Cell Count 4.9 X10^3/uL (4.5-11.0)
[2024-07-16 18:06] LABS: Alanine Aminotransferase 28 IU/L (<35); Albumin 4.4 g/dL (3.5-5.0); Albumin Globulin Ratio 1.6 (1.0-2.8); Alkaline Phosphatase 120 U/L (38-126); Aspartate Aminotransferase 36 IU/L (14-36); BUN Creatinine Ratio 20.3 (6-22); Bilirubin Total 0.8 mg/dL (0.2-1.3); Blood Urea Nitrogen 13 mg/dL (7-17); Calcium 9.5 mg/dL (8.4-10.2); Carbon Dioxide 26 mmol/L (22-32); Chloride 105 mmol/L (98-107); Cholesterol 239 mg/dL (140-199); Estimated Glomerular Filt Rate > 60 mL/min (>60); Globulin 2.8 g/dL (1.7-4.1); Glucose 207 mg/dL (70-100); HDL Cholesterol 66 mg/dL (40-60); HEMOLYSIS < 15 (0-50); LDL Cholesterol Calculated 157 mg/dL (<100); Potassium 4.1 mmol/L (3.4-5.1); Sodium 138 mmol/L (137-145); Total Protein 7.2 g/dL (6.3-8.2); Triglycerides 79 mg/dL (35-150)
== END ==
PROVIDERS: PCP Family Medicine; Referring Provider Family Medicine; Visit Provider Family Medicine
DX: E11.9 Type 2 diabetes mellitus without complications (principal); F41.9 Anxiety disorder, unspecified; E03.9 Hypothyroidism, unspecified; N91.5 Oligomenorrhea, unspecified; F32.A Depression, unspecified; Z79.899 Other long term (current) drug therapy
CPT/HCPCS: 36415; 80053; 80061; 85025

== ENCOUNTER → 2024-07-19 08:51 | Outpatient (CLI) | payer OTHER, SELFPAY ==
[2024-06-23 01:08] VITALS: BMI 30.2
--- NOTE | 2024-07-19 09:06 | DIAB.FU ---
Follow-up Diabetes Education Assessment: Insulin pump start and personal CGM Name: Jessica Terrazas Date: 07/19/24 Time: 9-1015a Dx: T1 Diabetes Provider: Andrea Corrales presents for Medtronic 780G insulin pump and Guardian 4 CGM, accompanied by her mother Kelle. She brought all pump and personal CGM equipment. TDD: 31.6u/day Pump settings: IC: 1:10 ISF: 1: 58 Basal rate: 12a-6a0.5 6am-6pm: 0.65 Max basal rate: 1.3u Max bolus: 15 active insulin 3hours Anthropometrics: Ht: 63 Wt: 171# 06/2024 PCP 193# 04/10 Weight history: Reports a wt change of 205 to 184# over a few weeks in Feb or Mar 2024 Self-Monitoring Blood Glucose: Wearing Dexcom. Switched to Guardian 4 today. Improved TIR since last visit. TIR: 13% very high 28% high 59% in range 0% low avmg/dl GMI: 7.5% std dev: 59 mg/dl variance: 33.7 % Last TIR: 39% very high 33% high 28% in range 0% low avmg/dl GMI: 8.7% std dev: 69 mg/dl variance: 30.4% Diabetes Medications: Lispro via insulin pump Pertinent Labs: HgA1c: 5.2% 05/16/2023 10.5% 03/2024 Cpeptide: 1 ng/mL 04/2024 0.3 ng/mL 06/2024 Past Medical History: (Last Updated 07/02/24 @ 10:09 by Apoorva Mendez DO) Diabetic ketoacidosis Hypothyroidism Oligomenorrhea Intervention: This participant was very receptive. Provided appropriate educational handouts. Discussed the following topics: Insulin pump placement and education CGM placement and education Created SMART goals for patient self-care and success. Goals: Wear CGM and insulin pump- new Bolus for meals/snacks- new Follow-up: CHRISTIANO ELLSWORTH follow-up in 24 hours with medtronic call center trainer and f/u in 5 days 1:1 with LOREE/SENG Gaming RDN, SENG Certified Diabetes Care and Form Setter [employer] P: [phone] Thank you for this referral
== END ==
LOC: DIET 08:51
PROVIDERS: PCP Family Medicine; Referring Provider Family Medicine
DX: Z46.81 Encounter for fitting and adjustment of insulin pump (principal); E10.9 Type 1 diabetes mellitus without complications; Z71.3 Dietary counseling and surveillance
CPT/HCPCS: 95249

== ENCOUNTER → 2024-07-25 08:28 | Outpatient (CLI) | payer OTHER, SELFPAY ==
[2024-06-23 01:08] VITALS: BMI 30.2
--- NOTE | 2024-07-25 08:30 | DIAB.FU ---
Follow-up Diabetes Education Assessment Name: Jessica Terrazas Date: 07/25/24 Time: 830-9am Dx: T1 Diabetes Provider: Andrea Corrales presents for Medtronic 780G insulin pump and Guardian 4 CGM site changes and BG review. She brought all pump and personal CGM equipment, however forgot her insulin. Feels comfortable changing infusion set and reservoir. Will need to change reservoir at home today. Overall, BG going well and she reports feeling comfortable with the pump. States this makes life easier with bolusing vs MDI. 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 Otherwise, bolusing appropriately. TDD: 17.4u/day Pump settings: IC: 1:10 ISF: 1: 58 Basal rate: 12a-6a0.5 6am-6pm: 0.65 Max basal rate: 1.3u Max bolus: 15 active insulin 3hours Anthropometrics: Ht: 63 Wt: 171# 06/2024 PCP 193# 04/10 Weight history: Reports a wt change of 205 to 184# over a few weeks in Feb or Mar 2024 Self-Monitoring Blood Glucose: TIR in goal and improved from previous visit. TIR: 4% very high 22% high 74% in range 0% low avmg/dl GMI: % std dev: 50 mg/dl variance: 32.7 % Last TIR: 13% very high 28% high 59% in range 0% low avmg/dl GMI: 7.5% std dev: 59 mg/dl variance: 33.7 % Diabetes Medications: Lispro via insulin pump Pertinent Labs: HgA1c: 5.2% 05/16/2023 10.5% 03/2024 Cpeptide: 1 ng/mL 04/2024 0.3 ng/mL 06/2024 Past Medical History: (Last Updated 07/02/24 @ 10:09 by Apoorva Mendez DO) Diabetic ketoacidosis Hypothyroidism Oligomenorrhea Intervention: This participant was very receptive. Provided appropriate educational handouts. Discussed the following topics: Site changes CHO amounts and bolusing Created SMART goals for patient self-care and success. Goals: Wear CGM and insulin pump- met Bolus for meals/snacks- met Change reservoir today at home- new Follow-up: CHRISTIANO ELLSWORTH follow-up in 1 week Meagan Gaming RDN, SENG Certified Diabetes Care and Cash Accountant P: [phone] Thank you for this referral
== END ==
PROVIDERS: PCP Family Medicine; Referring Provider Family Medicine
DX: Z46.81 Encounter for fitting and adjustment of insulin pump (principal); E10.9 Type 1 diabetes mellitus without complications; Z71.3 Dietary counseling and surveillance
CPT/HCPCS: G0108

== ENCOUNTER → 2024-08-02 09:33 | Outpatient (CLI) | payer OTHER, SELFPAY ==
[2024-06-23 01:08] VITALS: BMI 30.2
[2024-08-02 11:04] LABS: Thyroid Stimulating Hormone 15.7 uIU/mL (0.47-4.68)
== END ==
PROVIDERS: PCP Family Medicine; Referring Provider Family Medicine; Visit Provider Family Medicine
DX: E03.9 Hypothyroidism, unspecified (principal); E10.9 Type 1 diabetes mellitus without complications; Z71.3 Dietary counseling and surveillance; Z96.41 Presence of insulin pump (external) (internal)
CPT/HCPCS: 36415; 84443; G0108

== ENCOUNTER → 2024-08-02 09:34 | Outpatient (CLI) | payer OTHER, SELFPAY ==
[2024-06-23 01:08] VITALS: BMI 30.2
--- NOTE | 2024-08-02 10:38 | DIAB.FU ---
Follow-up Diabetes Education Assessment Name: Jessica Terrazas Date: 08/02/24 Time: 9-930a Dx: T1 Diabetes Provider: Andrea Corrales presents for DM follow-up. Reports she has changed pharmacies. Did not get vials from this pharmacy, got pens instead. Unclear if new pharmacy has vial rx. Reports mom has a question about her [facility] carmen not connecting. Unclear if mom is closing out her carmen. Sometimes getting home from work and not bolusing for late night snack, which results in elevations. Saw endo in [place]. Unclear why not [place] vs [place], but she did like her visit. Was officially diagnosed with Izabela's per report. States they are repeating C peptide and antibody labs. States she had cold sweats with a BG at 87mg/dl yesterday per CGM. Did not do a finger stick, but treated lightly with sugar and felt better. States she started her menstrual cycle, which does bring on some symptoms, ie nausea. So unsure which symptoms are diabetes or menstruation related per report. No lows were documented in CGM. TDD: 21.5u/day Pump settings: IC: 1:10 ISF: 1: 58 Basal rate: 12a-6a0.5 6am-6pm: 0.65 Max basal rate: 1.3u Max bolus: 15 active insulin 3hours Anthropometrics: Ht: 63 Wt: 171# 07/2024 171# 06/2024 PCP 193# 04/10 Weight history: Reports a wt change of 205 to 184# over a few weeks in Feb or Mar 2024 Self-Monitoring Blood Glucose: TIR in goal and slight improved from previous visit. TIR: 3% very high 21% high 76% in range 0% low avmg/dl GMI: 6.9% std dev: 47 mg/dl variance: 30.9 % Last TIR: 4% very high 22% high 74% in range 0% low avmg/dl GMI: % std dev: 50 mg/dl variance: 32.7 % Diabetes Medications: Lispro via insulin pump Pertinent Labs: HgA1c: 5.2% 05/16/2023 10.5% 03/2024 Cpeptide: 1 ng/mL 04/2024 0.3 ng/mL 06/2024 Past Medical History: (Last Updated 07/02/24 @ 10:09 by Apoorva Mendez DO) Diabetic ketoacidosis Hypothyroidism Oligomenorrhea Intervention: This participant was very receptive. Provided appropriate educational handouts. Discussed the following topics: Bolusing for late night meal/snack to avoid elevations Troubleshooting strategies for insulin access with switched pharmacies Strategies for connection with [facility] carmen T1 vs T2 review and lab work associated BG trends and stats Created SMART goals for patient self-care and success. Goals: Change reservoir today at home- met Check with pharmacy about vial rx- new bolus at 11p for meal/snack- new Check with mom to see if she keeps [facility] carmen open- new Follow-up: CHRISTIANO ELLSWORTH follow-up in 2 weeks Meagan Gaming RDN, SENG Certified Diabetes Care and Ocean Export Agent P: [phone] Thank you for this referral
== END ==
PROVIDERS: PCP Family Medicine; Referring Provider Family Medicine
DX: E10.9 Type 1 diabetes mellitus without complications (principal); Z71.3 Dietary counseling and surveillance; Z96.41 Presence of insulin pump (external) (internal); E03.9 Hypothyroidism, unspecified
CPT/HCPCS: G0108

== ENCOUNTER → 2024-08-16 09:01 | Outpatient (CLI) | payer OTHER, SELFPAY ==
[2024-06-23 01:08] VITALS: BMI 30.2
--- NOTE | 2024-08-16 09:28 | DIAB.MNTFU ---
Follow-up Diabetes Medical Nutrition Therapy Assessment Name: Jessica Terrazas Date: 08/16/24 Time: 9-930a Dx: T1 Diabetes Provider: Andrea Corrales presents for DM follow-up. Reports she has changed pharmacies. Has moved vial rx to new pharmacy, though has not picked up vials. Using pens to fill pump. Reports needing carb counting review, especially for pasta. Has questions about how insulin may impact future when she is ready. TDD: 21.5u/day---- 22u Pump settings: IC: 1:10 ISF: 1: 58 Basal rate: 12a-6a0.5 6am-6pm: 0.65 Max basal rate: 1.3u Max bolus: 15 active insulin 3hours Anthropometrics: Ht: 63 Wt: 171# 07/2024 171# 06/2024 PCP 193# 04/10 Weight history: Reports a wt change of 205 to 184# over a few weeks in Feb or Mar 2024 Self-Monitoring Blood Glucose: TIR in goal and improved from last visit. TIR: 1% very high 16% high 83% in range 0% low avmg/dl GMI: 6.5% std dev: 41 mg/dl variance: 30.2 % Last TIR: 3% very high 21% high 76% in range 0% low avmg/dl GMI: 6.9% std dev: 47 mg/dl variance: 30.9 % Diabetes Medications: Lispro via insulin pump Pertinent Labs: HgA1c: 5.2% 05/16/2023 10.5% 03/2024 Cpeptide: 1 ng/mL 04/2024 0.3 ng/mL 06/2024 Past Medical History: (Last Updated 07/02/24 @ 10:09 by Apoorva Mendez DO) Diabetic ketoacidosis Hypothyroidism Oligomenorrhea Nutrition Rx: Carbohydrates: Meal: 30-45g Snack:15-30g Nutrition Diagnosis: - Nutrition and food related knowledge deficit r/t needing more info on carb counting aeb pt report- new Intervention: This participant was very receptive. Provided appropriate educational handouts. Discussed the following topics: Carb portions and carb counting for pasta Impact of future on BG and safety of insulin Brief review of hgA1c goal and impact on health and risk reduction Importance of having back up pens and also vials for pump Created SMART goals for patient self-care and success. Goals: Check with pharmacy about vial rx- met bolus at 11p for meal/snack- met Check with mom to see if she keeps [facility] carmen open- met Use 1c pasta for 45g CHO- new Follow-up: CHRISTIANO ELLSWORTH follow-up in September after PCP visit per pt req. Meagan Gaming RDN, SENG Certified Diabetes Care and [employer]ber [employer] Worker P: [phone] Thank you for this referral
== END ==
PROVIDERS: PCP Family Medicine; Referring Provider Family Medicine
DX: E10.9 Type 1 diabetes mellitus without complications (principal); Z96.41 Presence of insulin pump (external) (internal); Z71.3 Dietary counseling and surveillance; E03.9 Hypothyroidism, unspecified
CPT/HCPCS: 97803

== ENCOUNTER → 2024-10-01 16:31 | Outpatient (CLI) | payer OTHER, SELFPAY ==
[2024-06-23 01:08] VITALS: BMI 30.2
[2024-10-01 18:33] LABS: Hemoglobin A1C% w Est Avg Glu 5.7 % (4.0-6.0)
== END ==
LOC: LAB 16:32
PROVIDERS: PCP Family Medicine; Referring Provider Family Medicine; Visit Provider Family Medicine
DX: E11.9 Type 2 diabetes mellitus without complications (principal)
CPT/HCPCS: 36415; 83036

== ENCOUNTER → 2024-10-09 10:49 | Outpatient (CLI) | payer OTHER, SELFPAY ==
[2024-06-23 01:08] VITALS: BMI 30.2
--- NOTE | 2024-10-11 10:09 | DIAB.MNTFU ---
Follow-up Diabetes Medical Nutrition Therapy Assessment Name: Jessica Terrazas Date: 10/09/24 Time: 111140a Dx: T1 Diabetes Provider: Andrea Corrales presents for DM follow-up. Reports she is out of CGM sensors but they have been shipped and she will not be on auto refill. Provided her with a sensor to get by today. Reports sensors have gotten knocked off, which is why she ran out. Has been finger sticking to continue pump therapy. Reports feeling down on herself, her health, her appearance. Reports previous referral by PCP to Behavioral Health, but did not pursue. Continues to work at [employer]. Most meals/snacks from work. Limited protein. has cut down on pasta lately. Some wt gain with improved hyperglycemia. Wt loss down to 170s# likely r/t hyperglycemia pre insulin pump or MDI therapy. 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 Considering running or hikes. Self-Monitoring Blood Glucose: TIR in goal when using auto corrections with CGM/pump therapy. Improved slightly from previous visit. since being without CGM sensor a bit of increased hyperglycemia but overall BG results mostly in goal. Avmg/dl and SD 85mg/dl Prior to CGM sensor d/c x 1-2 weeks: TIR: 2% very high 9% high 89% in range 0% low avmg/dl GMI: 6.6% std dev: 39 mg/dl variance: % Last TIR: 1% very high 16% high 83% in range 0% low avmg/dl GMI: 6.5% std dev: 41 mg/dl variance: 30.2 % Diabetes Medications: Lispro via insulin pump Pertinent Labs: HgA1c: 5.2% 05/16/2023 10.5% 03/2024 5.7% 09/2024 Cpeptide: 1 ng/mL 04/2024 0.3 ng/mL 06/2024 Past Medical History: (Last Updated 07/02/24 @ 10:09 by Apoorva Mendez DO) Diabetic ketoacidosis Hypothyroidism Oligomenorrhea Nutrition Rx: Carbohydrates: Meal: 30-45gSnack:15-30g Nutrition Diagnosis: - Nutrition and food related knowledge deficit r/t needing more info on carb counting aeb pt report- improved - Inconsistent protein intake r/t stage of change precontemplative aeb diet recall- new Intervention: This participant was very receptive. Provided appropriate educational handouts. Discussed the following topics: Importance of adding protein and macro pairing Carb portions Hydration recs Physical activity safety Behavioral health and community support Created SMART goals for patient self-care and success. Goals: Use 1c pasta for 45g CHO- met Consider calling - new Check out [place]- new Add protein 2x per day - new Aim for 32oz water per day or more- new Follow-up: CHRISTIANO ELLSWORTH follow-up in 6 months Meagan Gaming RDN, SENG Certified Diabetes Care and Music Supervisor P: [phone] Thank you for this referral
== END ==
LOC: DIET 10:49
PROVIDERS: PCP Family Medicine
DX: E10.65 Type 1 diabetes mellitus with hyperglycemia (principal); Z96.41 Presence of insulin pump (external) (internal); Z71.3 Dietary counseling and surveillance
CPT/HCPCS: 97803

== ENCOUNTER → 2025-01-21 14:02 | Outpatient (CLI) | payer OTHER, SELFPAY ==
[2024-06-23 01:08] VITALS: BMI 30.2
== END ==
PROVIDERS: PCP Family Medicine; Visit Provider Chiropractor
DX: R30.0 Dysuria (principal)
CPT/HCPCS: 87077; 87086

== ENCOUNTER → 2025-04-02 10:59 | Outpatient (CLI) | payer OTHER, SELFPAY ==
[2024-06-23 01:08] VITALS: BMI 30.2
--- NOTE | 2025-04-23 16:53 | DIAB.MNTFU ---
Follow-up Diabetes Medical Nutrition Therapy Assessment Name: Jessica Terrazas Date: 04/02/28 Time: 11a-12p Dx: T1 Diabetes Provider: Andrea Corrales presents for DM follow-up. Eating more salad with chicken at work recently, 2-3x per week. Also reports increased sweets lately with holiday baking. Per diet recall, much higher CHO intake and therefore increased bolusing. Considering more meal prep to help with diet choices. Endorses difficulty with taking medications consistently. Continues with insulin pump and bolusing; however has not been wearing CGM recently and not in auto mode, which likely is causing higher BG. Reports continued concerns about depression, which may be impacting her medication compliance. Considering reducing social media apps to help with mental health per report. Endorses some concerns about her body image regarding her wt gain. Wt gain likely r/t reduced hyperglycemia and increased kcal intake reported. Reports feeling down on herself, her health, her appearance. Reports previous referral by PCP to Behavioral Health, but did not pursue. States she may be hesitant to pursue BH due to family stigma about seeking such help. Continues to work at [employer]. Most meals/snacks from work. 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 Reduced motivation for exercise r/t depression per report. Self-Monitoring Blood Glucose: TIR indicates increased hyperglycemia TIR: 5% very high 13% high 81% in range 1% low avmg/dl GMI: % std dev: 54 mg/dl variance: 38.9% Last TIR: 2% very high 9% high 89% in range 0% low avmg/dl GMI: 6.6% std dev: 39 mg/dl variance: % Diabetes Medications: Lispro via insulin pump Pertinent Labs: HgA1c: 5.2% 05/16/2023 10.5% 03/2024 5.7% 09/2024 Cpeptide: 1 ng/mL 04/2024 0.3 ng/mL 06/2024 Past Medical History: (Last Updated 07/02/24 @ 10:09 by Apoorva Mendez DO) Diabetic ketoacidosis Hypothyroidism Oligomenorrhea Nutrition Rx: Carbohydrates: Meal: 30-45gSnack:15-30g Nutrition Diagnosis: - Excessive CHO intake r/t holiday eating aeb pt report and diet recall Intervention: This participant was very receptive. Provided appropriate educational handouts. Discussed the following topics: Bolusing portions for CHO Carb portions Physical activity barriers and personal goals Barriers to Behavioral Health resources, benefits, potential strategies to pursue this Meal prep ideas, grocery shopping strategies Impact social media may be having on her body image and other ways to occupy her time she enjoys Importance of ordering CGM for auto mode how to upgrade CGM and types of CGMs available for her pump Created SMART goals for patient self-care and success. Goals: Consider calling - in progress Check out [place]- not met Add protein 2x per day - not met Aim for 32oz water per day or more- met Try meal prepping- new Grocery shop on Sundays- new Read or puzzle when wake up- new Delete social media carmen as you feel pertinent- new Bolus 24g for 16oz milk- new Order/upgrade CGM sensor- new Follow-up: CHRISTIANO ELLSWORTH follow-up in 1 month Meagan Gaming RDN, SENG Certified Diabetes Care and Balancing Machine Set Up Worker P: [phone] Thank you for this referral
== END ==
LOC: DIET 10:59
PROVIDERS: PCP Family Medicine; Referring Provider Family Medicine
DX: E10.65 Type 1 diabetes mellitus with hyperglycemia (principal); Z71.3 Dietary counseling and surveillance; Z96.41 Presence of insulin pump (external) (internal)
CPT/HCPCS: 97803

== ENCOUNTER → 2025-04-04 07:54 | Outpatient (CLI) | payer OTHER, SELFPAY ==
[2024-06-23 01:08] VITALS: BMI 30.2
[2025-04-04 08:23] LABS: Hemoglobin A1C% w Est Avg Glu 7.4 % (4.0-6.0)
[2025-04-04 09:10] LABS: Thyroid Stimulating Hormone 0.066 uIU/mL (0.47-4.68)
== END ==
PROVIDERS: PCP Family Medicine; Referring Provider Family Medicine; Visit Provider Family Medicine
DX: E11.9 Type 2 diabetes mellitus without complications (principal); E03.8 Other specified hypothyroidism; E06.3 Autoimmune thyroiditis
CPT/HCPCS: 36415; 83036; 84443